=== PATIENT | male | born 1930 | race Caucasian/White ===

== ENCOUNTER 2018-11-17 09:40 | Observation (INO) ==
[2018-11-17] MEDS ORDERED: ceFAZolin 1 GM VIAL IV SCH (10:00)
[2018-11-17 11:36] LABS: Blood Urea Nitrogen 13 mg/dl (8-23)
[2018-11-17] MEDS ORDERED: TRANEXAMIC ACID 1,000 MG/10 ML VIAL IV ONE (12:25)
[2018-11-17] MEDS ORDERED: ONDANSETRON 4 MG/2 ML VIAL IV ONE (12:25)
[2018-11-17] MEDS ORDERED: PROPOFOL 200 MG/20 ML VIAL IV ONE (12:25)
[2018-11-17] MEDS ORDERED: MIDAZOLAM 5 MG/5 ML VIAL IV ONE (12:25)
[2018-11-17] MEDS ORDERED: LIDOCAINE HCL/PF 100 MG/5 ML SYRINGE IV ONE (12:25)
[2018-11-17] MEDS ORDERED: fentaNYL 250 MCG/5 ML VIAL IV ONE (12:25)
[2018-11-17] MEDS ORDERED: FLUMAZENIL 0.1 MG/ML ML IV PRN (12:38)
[2018-11-17] MEDS ORDERED: diphenhydrAMINE 50 MG/ML VIAL IV PRN (12:38)
[2018-11-17] MEDS ORDERED: PROMETHAZINE 25 MG/ML VIAL IV PRN (12:38)
[2018-11-17] MEDS ORDERED: IPRATROPIUM/ALBUTEROL 3 ML AMPUL.NEB NEB PRN (12:38)
[2018-11-17] MEDS ORDERED: BENZOCAINE/MENTHOL 1 LOZENGE PO PRN (12:38)
[2018-11-17] MEDS ORDERED: NALOXONE HCL 0.4 MG/ML VIAL IV PRN (12:38)
[2018-11-17] MEDS ORDERED: ACETAMINOPHEN 1,000 MG/100 ML BOTTLE IV ONE (12:38)
[2018-11-17] MEDS ORDERED: ONDANSETRON 4 MG/2 ML VIAL IV PRN ×2 (12:38→14:02)
[2018-11-17] MEDS ORDERED: LACTATED RINGERS 250 ML IV PRN (12:38)
[2018-11-17] MEDS ORDERED: LACTATED RINGERS 1,000 ML IV SCH (12:45)
[2018-11-17 13:06] LABS: Basophils # (Auto) 0 K/mcL (0.0-0.3); Basophils % (Auto) 0.4 % (0.0-2.0); Eosinophils # (Auto) 0.1 K/mcL (0.0-0.7); Eosinophils % (Auto) 1.1 % (0.0-7.0); Granulocytes % (Auto) 79.5 % (38.0-78.0); Lymphocytes % (Auto) 11.1 % (15.5-49.0); Mean Cell Volume 88.8 fL (80.0-100.0); Mean Corpuscular HGB Conc 33.3 g/dL (31.0-36.0); Monocytes # (Auto) 0.7 K/mcL (0.1-0.9); Monocytes % (Auto) 7.9 % (1.0-12.0); Platelet Count 186 K/mcL (140-440); RBC 4.39 M/mcL (4.50-5.90); Red Cell Distribution Width 14.7 % (11.5-14.5)
[2018-11-17 13:26] LABS: ALT/SGPT 24 U/l (0-40); Albumin 3.9 gm/dL (3.2-5.2); Albumin/Globulin Ratio 1.2 (1.0-2.3); Alkaline Phosphatase 84 U/L (39-117); Blood Urea Nitrogen 12 mg/dl (8-23)
--- NOTE | 2018-11-17 13:53 | Brief Operative Note ---
Date of procedure: 11/17/18 Pre-op diagnosis: hematuria Post-op diagnosis: same Procedure: evacuation of clot, turp Grafts/Implants: No Anesthesia: GLMA Findings: see note Complications: none Surgeon: Eduard Cruz Specimens Removed/Pathology: other (prostate chips) Condition: stable Disposition: PACU
[2018-11-17] MEDS ORDERED: MAG HYDROX/AL HYDROX/SIMETH 30 ML ORAL.SUSP PO PRN (14:02)
[2018-11-17] MEDS ORDERED: HYDROCODONE/APAP 7.5/325MG TABLET PO PRN (14:10)
[2018-11-17] MEDS: fentaNYL 100 MCG/2 ML VIAL IV PRN ×4 (14:20→14:35)
--- NOTE | 2018-11-17 14:50 | Operative Note ---
DATE OF OPERATION: 11/17/2018 PREOPERATIVE DIAGNOSIS: Hematuria. POSTOPERATIVE DIAGNOSIS: Hematuria. PROCEDURE: Evacuation of clots and transurethral resection of the prostate. SURGEON: Edaurd Cruz MD INDICATION: The patient is an 88-year-old gentleman who was having blood in his urine. It appeared that this was from the prostate and continued to bleed. He did develop clot retention and presents now for treatment. PROCEDURE IN DETAIL: The patient was identified and consent was signed. He was given general anesthesia, placed in lithotomy position, and prepped and draped in a standard fashion. Cystourethroscopy showed enlarged prostate with bleeding; also multiple clots in the bladder. This was evacuated free with the FlowCo evacuator. There appeared to be bleeding from the prostate; using the loop, we were able to remove the excess tissue and coagulate it. I was pleased with the overall appearance. This opened up the channel, but he also had a good flow when the catheter was removed. A 3-way catheter was then placed in traction was held for 5 minutes. His urine was fairly clear. He was started on continuous irrigation, awoken and taken to the recovery room in stable condition. He tolerated the procedure well. AntoniZ:lala Job ID: [id number] Doc ID: [id number] Eduard Cruz MD
[2018-11-17] MEDS: DEXTROSE 5%-NS 1,000 ML IV SCH (15:20)
[2018-11-17] MEDS: HYDROmorphone 2 MG/ML VIAL IV PRN ×3 (16:15→19:25)
[2018-11-17] MEDS: oxyCODONE/APAP 5/325MG TABLET PO PRN (19:37)
[2018-11-17] MEDS: VITAMIN E (DL,TOCOPHERYL ACET) 400 UNIT CAPSULE PO SCH (21:11)
[2018-11-17] MEDS: CEPHALEXIN 250 MG CAPSULE PO SCH (21:11)
[2018-11-17] MEDS: CALCIUM W/VIT D3 500 MG TABLET PO SCH (21:11)
[2018-11-17] MEDS: 0.9 % SODIUM CHLORIDE 10 ML SYRINGE IV SCH (21:13)
[2018-11-18] MEDS: oxyCODONE/APAP 5/325MG TABLET PO PRN ×5 (00:10→16:56)
[2018-11-18 06:21] LABS: Mean Cell Volume 91.3 fL (80.0-100.0); Mean Corpuscular HGB Conc 32.7 g/dL (31.0-36.0); Platelet Count 184 K/mcL (140-440); RBC 3.98 M/mcL (4.50-5.90); Red Cell Distribution Width 14.1 % (11.5-14.5)
[2018-11-18 07:11] LABS: Blood Urea Nitrogen 15 mg/dl (8-23)
[2018-11-18] MEDS: CEPHALEXIN 250 MG CAPSULE PO SCH ×3 (07:17→21:15)
[2018-11-18] MEDS: 0.9 % SODIUM CHLORIDE 10 ML SYRINGE IV SCH ×3 (07:18→21:17)
--- NOTE | 2018-11-18 07:20 | General Surgery Progress Note ---
Subjective Patient reports: feels better Narrative: Note initiated : 11/18/18 at 7:19 am Service Date, if different from initiated Date: [] Patient: Suman Charles 88 y/o M admitted on for Transuretheral Resection of Alexis dder Tumor. Chief Complaint: [] pod #1 patient feels better. urine is blood tinged. will stop cbi observe today Objective Temp Pulse Resp BP Pulse Ox 97.8 F 80 16 120/62 93 11/18/18 03:00 11/18/18 03:00 11/18/18 03:00 11/18/18 03:00 11/18/18 03:00 - Additional Data Intake & Output - Last 24 hours: Intake & Output 11/16/18 11/17/18 11/18/18 11/19/18 05:59 05:59 05:59 05:59 Intake Total 16488 Output Total 32865 Balance 505 Weight 205 lb - Labs 11/18/18 03:57 11/18/18 03:57 Diabetes panel 11/17/18 11/17/18 11/18/18 Range/Units 10:49 12:19 03:57 Sodium 141 137 137 (133-145) mmol/L Potassium 4.2 4.0 4.8 (3.3-5.1) mmol/L Chloride 105 103 102 (96-108) mmol/L Carbon Dioxide 26 25 23 (22-30) mmol/L BUN 13 12 15 (8-23) mg/dl Creatinine 1.0 0.9 0.9 (0.7-1.2) mg/dl Glucose 115 H 119 H 139 H (70-105) mg/dL Calcium 9.7 9.5 9.7 (8.6-10.4) mg/dl AST 22 (0-37) U/l ALT 24 (0-40) U/l Alkaline Phosphatase 84 (39-117) U/L Total Protein 7.2 (5.9-8.4) gm/dL Albumin 3.9 (3.2-5.2) gm/dL Calcium panel 11/17/18 11/17/18 11/18/18 Range/Units 10:49 12:19 03:57 Calcium 9.7 9.5 9.7 (8.6-10.4) mg/dl Albumin 3.9 (3.2-5.2) gm/dL Pituitary panel 11/17/18 11/17/18 11/18/18 Range/Units 10:49 12:19 03:57 Sodium 141 137 137 (133-145) mmol/L Potassium 4.2 4.0 4.8 (3.3-5.1) mmol/L Chloride 105 103 102 (96-108) mmol/L Carbon Dioxide 26 25 23 (22-30) mmol/L BUN 13 12 15 (8-23) mg/dl Creatinine 1.0 0.9 0.9 (0.7-1.2) mg/dl Glucose 115 H 119 H 139 H (70-105) mg/dL Calcium 9.7 9.5 9.7 (8.6-10.4) mg/dl Adrenal panel 11/17/18 11/17/18 11/18/18 Range/Units 10:49 12:19 03:57 Sodium 141 137 137 (133-145) mmol/L Potassium 4.2 4.0 4.8 (3.3-5.1) mmol/L Chloride 105 103 102 (96-108) mmol/L Carbon Dioxide 26 25 23 (22-30) mmol/L BUN 13 12 15 (8-23) mg/dl Creatinine 1.0 0.9 0.9 (0.7-1.2) mg/dl Glucose 115 H 119 H 139 H (70-105) mg/dL Calcium 9.7 9.5 9.7 (8.6-10.4) mg/dl Total Bilirubin 1.1 H (0.0-1.0) mg/dL AST 22 (0-37) U/l ALT 24 (0-40) U/l Alkaline Phosphatase 84 (39-117) U/L Total Protein 7.2 (5.9-8.4) gm/dL Albumin 3.9 (3.2-5.2) gm/dL Assessment and Plan - Time Spent With Patient Total time spent is greater than 50% in coordination of care (as documented) at patient's floor/unit and/or counseling patient:
[2018-11-18] MEDS: FINASTERIDE 5 MG TABLET PO SCH (09:06)
[2018-11-18] MEDS: CALCIUM W/VIT D3 500 MG TABLET PO SCH ×2 (09:06→21:15)
[2018-11-18] MEDS: MAGNESIUM OXIDE 400 MG TABLET PO SCH (09:06)
[2018-11-18] MEDS: VITAMIN D3 5,000 UNIT CAPSULE PO SCH (09:06)
[2018-11-18] MEDS: DEXTROSE 5%-NS 1,000 ML IV SCH (10:23)
--- NOTE | 2018-11-18 13:13 | Surgical Pathology Report ---
HISTOLOGY SPECIMEN MICROSCOPIC DIAGNOSIS PROSTATE, TRANSURETHRAL RESECTION: -- PROSTATE TISSUE WITH THERMAL DISTORTION, PATCHY CHRONIC INFLAMMATION AND MILD GLANDULAR AND STROMAL HYPERPLASIA. -- NO MALIGNANCY IDENTIFIED. (ACP:dionna) CLINICAL HISTORY Hematuria; unable to pass catheter. GROSS DESCRIPTION Received in formalin labeled prostate tissue, are multiple pink-cartwright tissue fragments and clot-like material in aggregate 11 x 10.5 x 1 cm and 83 grams. The majority of the tissue appears to be blood clot. Competitive Athlete tissue submitted in six cassettes. (STS:adj) Electronically Signed by: Eber Osuna M.D.
[2018-11-18] MEDS: DIGOXIN 125 MCG TABLET PO SCH (13:58)
[2018-11-18] MEDS: VITAMIN E (DL,TOCOPHERYL ACET) 400 UNIT CAPSULE PO SCH (21:14)
[2018-11-19] MEDS: DEXTROSE 5%-NS 1,000 ML IV SCH (05:27)
[2018-11-19] MEDS: CEPHALEXIN 250 MG CAPSULE PO SCH ×2 (06:07→13:40)
[2018-11-19] MEDS: 0.9 % SODIUM CHLORIDE 10 ML SYRINGE IV SCH (06:07)
[2018-11-19] MEDS: oxyCODONE/APAP 5/325MG TABLET PO PRN (06:09)
[2018-11-19] MEDS ORDERED: POLYETHYLENE GLYCOL 3350 17 GM PACKET PO PRN (07:05)
[2018-11-19] MEDS: FINASTERIDE 5 MG TABLET PO SCH (08:17)
[2018-11-19] MEDS: MAGNESIUM OXIDE 400 MG TABLET PO SCH (08:17)
[2018-11-19] MEDS: CALCIUM W/VIT D3 500 MG TABLET PO SCH (08:17)
[2018-11-19] MEDS: VITAMIN D3 5,000 UNIT CAPSULE PO SCH (08:18)
--- NOTE | 2018-11-19 11:55 | General Surgery Progress Note ---
Subjective Patient reports: feels better, tolerating a regular diet, flatus Narrative: Note initiated : 11/19/18 at 11:53 am Service Date, if different from initiated Date: [] Patient: Suman Charles 88 y/o M admitted on 11/17/18 for Transuretheral Resection of Bladder Tumor. Chief Complaint: [] POD #2 patient doing well. Catheter remove. able to urinate. will d/c to home Objective Temp Pulse Resp BP Pulse Ox 97.8 F 76 14 120/61 89 L 11/19/18 07:05 11/19/18 07:05 11/19/18 07:05 11/19/18 07:28 11/19/18 07:05 - Additional Data Intake & Output - Last 24 hours: Intake & Output 11/17/18 11/18/18 11/19/18 11/20/18 05:59 05:59 05:59 05:59 Intake Total 48719 3206 Output Total 57904 3655 75 Balance 505 -449 -75 Weight 205 lb 203 lb 6.4 oz - Labs 11/18/18 03:57 11/18/18 03:57 Assessment and Plan - Time Spent With Patient Total time spent is greater than 50% in coordination of care (as documented) at patient's floor/unit and/or counseling patient:
--- NOTE | 2018-11-19 11:58 | Discharge Plan ---
Discharge Plan - Patient/Caregiver Discharge Instructions Activity: resume usual activities as tolerated Diet: Regular Diet Additional Instructions: stop aspirin for 1 week f/u in 1 week - Follow up Plan Disposition: Home, Self-Care Prognosis: Good Rehab Potential: Good Overall status at discharge: patient is back to baseline
--- NOTE | 2018-11-19 12:21 | Discharge Summary ---
DATE OF ADMISSION: 11/17/2018 DATE OF DISCHARGE: ADMITTING DIAGNOSIS: Hematuria. DISCHARGE DIAGNOSIS: Hematuria. PROCEDURE: Transurethral resection of the prostate and removal of blood clots. SURGEON: Eduard Cruz MD INDICATION: The patient is an 88-year-old gentleman who did have blood in his urine. We tried to handle this conservatively, but continued to bleed and in the office we could not irrigate his catheter. He was admitted to observation for a TURP. For the rest of history and physical, please see his dictation. BRIEF HOSPITAL COURSE: The patient did well after the surgery. He was on continuous irrigation and his urine did clear. We left a catheter in for 2 days and on postop day #2, his urine was clear. Continuous bladder irrigation had been stopped and we removed the catheter and he was able to urinate. It says there was very little blood. I would hold off the aspirin. He will continue his preop medications. We will follow up in a week and if there is a problem, he will give me a call. RZ:lala Job ID: [id number] Doc ID: [id number] Eduard Cruz MD
[2018-11-19] MEDS: DIGOXIN 125 MCG TABLET PO SCH (13:40)
== END 2018-11-19 13:45 | disposition home or self-care (01) ==
LOC: MEDSUR 09:40 → SUR 09:40 → EDSTATUS 12:00 → MEDSUR 15:00
PROVIDERS: ADMIT Internal Medicine

== ENCOUNTER 2020-07-07 00:34 | Inpatient (IN) ==
[2020-07-07] MEDS ORDERED: LIDOCAINE 2% URO-JET 5 ML JEL.PF.APP UR ONE (03:12)
[2020-07-07] MEDS ORDERED: OPIUM/BELLADONNA ALKALOIDS 60 MG SUPP.RECT PR ONE (03:12)
[2020-07-07] MEDS ORDERED: LIDOCAINE JEL 2% 1 TUBE 5ML TOPICAL ONE ×2 (03:16→04:08)
[2020-07-07] MEDS ORDERED: cefTRIAXone 1 GM VIAL IV ONE (03:25)
[2020-07-07] MEDS ORDERED: ONDANSETRON 4 MG/2 ML VIAL IV PRN ×2 (03:35→12:40)
--- NOTE | 2020-07-07 03:38 | Emergency Department Note ---
Male Urogenital HPI General Chief complaint: Urogenital-Male Stated complaint: urinary retention Time Seen by Provider: 07/07/20 03:35 Source: patient and RN notes reviewed Mode of arrival: ambulatory Limitations: no limitations History of Present Illness HPI Narrative: Narrative: This is a patient of Dr. Mueller who has had bleeding from his bladder recently. She placed a catheter this morning but now the catheter is plugged and the nurses having trouble irrigating and unplugging it. The nurse contacted Dr. Philomena joyce and she will come in to see the patient. The patient complains to me of bladder distention and discomfort and has 650 cc of urine in his bladder. Onset (ago): day(s) Related Data Home Medications Medication Instructions Recorded Confirmed digoxin 250 mcg PO DAILY 06/06/15 07/07/20 vitamin E (dl, acetate) 800 unit PO HS 06/06/15 07/07/20 calcium carbonate-vitamin D3 2 tab PO BID 07/09/17 07/07/20 cholecalciferol (vitamin D3) 125 5,000 unit PO QDAY 12/03/17 07/07/20 mcg (5,000 unit) capsule aspirin 325 mg PO DAILY 07/07/20 07/07/20 nitroglycerin 0.4 mg SUBLINGUAL PRN PRN 07/07/20 07/07/20 Previous Rx's Medication Instructions Recorded calcium carbonate-vitamin D3 1,000 mg PO BID tab 11/19/18 phenazopyridine 200 mg tablet 200 mg PO TID #30 tab 11/21/18 finasteride 5 mg tablet 5 mg PO QDAY #20 tab 09/09/19 Allergies Allergy/AdvReac Type Severity Reaction Status Date / Time dexamethasone [DEXAMETHASONE] AdvReac Intermediate SHAKING,VOM Verified 07/07/20 06:58 ITING,ITCHI NG codeine [CODEINE] AdvReac Mild DISORIENTED Verified 07/06/20 13:07 orange AdvReac Mild Vomiting Verified 07/06/20 13:07 prednisone AdvReac Mild Confusion Verified 07/06/20 13:07 perfume Allergy Severe Anaphylaxis Uncoded 07/06/20 13:07 Review of Systems ROS ROS Narrative: Narrative: All systems ED: reviewed and negative except as stated. PFSH Narrative Patient History Narrative: Narrative: Medical/Surgical/Family History All Active Problems (Updated 07/07/20 @ 07:01 by Phillip Moreno MD) Bleeding (Acute) Bleeding from varicose vein (Acute) Dysuria (Acute) Hematuria (Acute) History of bladder cancer (Acute) Bleeding from urethra in male (Acute) Benign paroxysmal positional vertigo (Acute) Hemorrhage of prostate (Acute) Hx of transurethral destruction of bladder lesion (Acute) History of tonsillectomy and adenoidectomy (Acute) H/O shoulder surgery (Acute) Pacemaker (Acute) H/O knee surgery (Acute) H/O hemorrhoidectomy (Acute) H/O cardiac catheterization (Acute) H/O cystoscopy (Acute) History of carpal tunnel release (Acute) Tuberculosis exposure (Acute) Tachycardia (Acute) Obstructive sleep apnea (Acute) Mumps (Acute) Microscopic hematuria (Acute) Measles (Acute) Malaria (Acute) Hydroureter (Acute) Hydronephrosis (Acute) Heart disease (Acute) Enlarged prostate (Acute) Bronchitis (Acute) Bradycardia (Acute) BPH (benign prostatic hyperplasia) (Acute) Bladder malignancy (Acute) Bladder outlet obstruction (Acute) Lesion of bladder (Acute) Back pain (Acute) Atrial fibrillation (Acute) Atherosclerosis (Acute) Arthritis (Acute) Allergic rhinitis (Acute) Acute retention of urine (Acute) Medical History (Updated 07/07/20 @ 07:01 by Phillip Moreno MD) Acute retention of urine (Acute) Allergic rhinitis (Acute) Arthritis (Acute) Atherosclerosis (Acute) Atrial fibrillation (Acute) Back pain (Acute) Bladder malignancy (Acute) Bladder outlet obstruction (Acute) Bleeding (Acute) BPH (benign prostatic hyperplasia) (Acute) Bradycardia (Acute) Bronchitis (Acute) Enlarged prostate (Acute) Heart disease (Acute) Hydronephrosis (Acute) Hydroureter (Acute) Lesion of bladder (Acute) Malaria (Acute) Measles (Acute) Microscopic hematuria (Acute) Mumps (Acute) Obstructive sleep apnea (Acute) Pacemaker (Acute) Tachycardia (Acute) Tuberculosis exposure (Acute) Surgical History H/O cardiac catheterization (Acute) H/O cystoscopy (Acute) H/O hemorrhoidectomy (Acute) H/O knee surgery (Acute) H/O shoulder surgery (Acute) History of carpal tunnel release (Acute) History of tonsillectomy and adenoidectomy (Acute) Hx of transurethral destruction of bladder lesion (Acute) Family History Father Cardiac disease Mother Disorder of thyroid Social History Smoking Status: Never smoker Alcohol Intake Frequency: holiday/special occasion only Exam Narrative Narrative: Narrative: General Limitations: no limitations Head Head: Present atraumatic, normocephalic and normal inspection Eye Eye: Present normal appearance and EOMI; Absent scleral icterus and conjunctival injection Adbominal Abdominal: Present soft, distention and tenderness; Absent guarding, rebound and rigidity Expanded Abdominal Abdominal Tenderness: Present suprapubic and mild Neurological Neurological: Present alert Psychiatric Psychiatric: Present normal affect Skin Skin: Present warm (WNL) and dry; Absent diaphoresis Course Vital Signs Vital signs: Vital Signs Temperature 100.2 F H 07/07/20 00:35 Pulse Rate 81 07/07/20 00:35 Respiratory Rate 17 07/07/20 00:35 Blood Pressure 138/73 07/07/20 00:35 Pulse Oximetry (%) 97 07/07/20 00:35 Temperature 98.2 F 07/07/20 04:17 Pulse Rate 75 07/07/20 04:17 Respiratory Rate 20 07/07/20 04:17 Blood Pressure 131/78 07/07/20 04:17 Pulse Oximetry (%) 92 07/07/20 04:17 MDM MDM Narrative Medical decision making narrative: Narrative: Dr. Mueller felt that she needed to place a three-way cath that her in order to maintain continuous bladder irrigation. She would like the patient admitted in the hospital and I discussed this with the hospitalist as needed she. I did write admit orders for the hospitalist. Lab Data Result diagrams: 07/07/20 04:40 07/07/20 04:40 Discharge Plan Patient/Caregiver Discharge Instructions Pt seen by DAM WORKER/PA only: No Clinical Impression: Hemorrhage of prostate Patient Disposition: Xfer As Outpt/Obs ([facility]) Discharge Date/Time: 07/07/20 04:20
[2020-07-07] MEDS: LACTATED RINGERS 1,000 ML IV SCH ×2 (04:20→12:48)
[2020-07-07 06:03] LABS: Basophils # (Auto) 0.05 K/mcL (0.00-0.30); Basophils % (Auto) 0.6 % (0.0-2.0); Eosinophils # (Auto) 0.16 K/mcL (0.00-0.70); Eosinophils % (Auto) 1.8 % (0.0-7.0); Granulocytes % (Auto) 70.5 % (38.0-78.0); Hematocrit 42.2 % (40.1-51.0); Hemoglobin 13.5 g/dL (13.7-17.5); Lymphocytes # (Auto) 1.35 K/mcL (1.50-4.80); Lymphocytes % (Auto) 15.5 % (15.5-49.0); Mean Cell Volume 91.9 fL (80.0-100.0); Mean Platelet Volume 10.8 fL (7.4-10.4); Monocytes # (Auto) 1.01 K/mcL (0.10-0.90); Monocytes % (Auto) 11.6 % (1.0-12.0); Platelet Count 172 K/mcL (140-440); RBC 4.59 M/mcL (4.63-6.08); Red Cell Distribution Width 14.6 % (11.5-14.5); WBC 8.7 K/mcL (4.50-11.00)
[2020-07-07 06:16] LABS: INR 1.2 (0.9-1.1); Prothrombin Time 15.5 sec (11.9-14.5)
[2020-07-07 06:21] LABS: ALT/SGPT 24 U/l (0-40); AST/SGOT 23 U/l (0-37); Albumin 3.9 gm/dL (3.2-5.2); Albumin/Globulin Ratio 1.3 (1.0-2.3); Alkaline Phosphatase 98 U/L (39-117); Bilirubin,Direct 0.3 mg/dL (0.0-0.3); Bilirubin,Total 0.9 mg/dL (0.0-1.0); Blood Urea Nitrogen 17 mg/dl (8-23); Carbon Dioxide 23 mmol/L (22-30); Chloride 103 mmol/L (96-108); Glomerular Filtration Rate 60; Glucose 106 mg/dL (70-105); Lactate Dehydrogenase 166 U/L (94-250); Phosphorous 3.3 mg/dL (2.7-4.5); Triglycerides 105 mg/dl (<150); Uric Acid 5.7 mg/dL (2.5-8.0)
--- NOTE | 2020-07-07 07:49 | Internal Medicine Consult Note ---
HPI Data of Consult Primary Care Provider: Juan Manuel Rivas Consult Narrative Patient Information: Note initiated : 07/07/20 at 7:44 am Service Date, if different from initiated Date: [] Patient: Suman Charles 89 y/o M admitted on 07/07/20 for Urinary Retention. Consult done 07/07/2020 in the emergency room. Patient with gross hematuria with h/o retention. underwent both PVP and then urgent TURP for bleeding post procedure with Dr. Cruz. Then possible thrid procedure for bleeding with another urologist. he has had itnermittent gross hematuria since then (about 1 year). hematuria worsened recently and passing larger clots so was seen in clinic yesterday. Cystoscopy revealed VERY enlarged prostate with large median lobe. Hand irrigation through 20 zimbabwean coudee was able to get him clear and no further bleeding. such was left in place. Once home hematuria returned and catheter clogged and came to ER. Catheter removed as unable to be irrigated and able to void small amounts. Currently in pain and feels bladder is distended. Urine is thick dark red. he takes 325 mg asa. No fevers, no chills, no nausea no emesis. cc:: CC: Maria Eugenia Altamirano Constitutional Constitutional: Absent chills, fever(s) and malaise EENT Eyes: Absent change in vision, dry eye and irritation Cardiovascular Cardiovascular: Absent chest pain, chest pain at rest and chest pain with activity Respiratory Respiratory: Present dyspnea on exertion and wheezing; Absent cough Gastrointestinal Gastrointestinal: Present abdominal pain; Absent constipation, nausea and vomiting Genitourinary Genitourinary: as per HPI Musculoskeletal Musculoskeletal: Present myalgias; Absent abnormal gait and back pain Integumentary Integumentary: Absent rash, sores and unusual bruising Neurological Neurological: Absent confusion, dizziness and focal weakness Psychiatric Psychiatric: Present anxiety; Absent change in appetite and depression Endocrine Endocrine: Absent polyphagia and polyuria Hematologic/Lymphatic Hematologic/Lymphatic: Present easy bleeding; Absent easy bruising and lymphadenopathy Allergic/Immunologic Allergic/Immunologic: Absent itchy eyes, uticaria and wheezing PFSH PFSH All Active Problems (Updated 07/07/20 @ 08:50 by Omari Mueller MD) Bleeding (Acute) Bleeding from varicose vein (Acute) Dysuria (Acute) Hematuria (Acute) History of bladder cancer (Acute) Bleeding from urethra in male (Acute) Benign paroxysmal positional vertigo (Acute) Hemorrhage of prostate (Acute) Hx of transurethral destruction of bladder lesion (Acute) History of tonsillectomy and adenoidectomy (Acute) H/O shoulder surgery (Acute) Pacemaker (Acute) H/O knee surgery (Acute) H/O hemorrhoidectomy (Acute) H/O cardiac catheterization (Acute) H/O cystoscopy (Acute) History of carpal tunnel release (Acute) Tuberculosis exposure (Acute) Tachycardia (Acute) Obstructive sleep apnea (Acute) Mumps (Acute) Microscopic hematuria (Acute) Measles (Acute) Malaria (Acute) Hydroureter (Acute) Hydronephrosis (Acute) Heart disease (Acute) Enlarged prostate (Acute) Bronchitis (Acute) Bradycardia (Acute) BPH (benign prostatic hyperplasia) (Acute) Bladder malignancy (Acute) Bladder outlet obstruction (Acute) Lesion of bladder (Acute) Back pain (Acute) Atrial fibrillation (Acute) Atherosclerosis (Acute) Arthritis (Acute) Allergic rhinitis (Acute) Acute retention of urine (Acute) Medical History Acute retention of urine (Acute) Allergic rhinitis (Acute) Arthritis (Acute) Atherosclerosis (Acute) Atrial fibrillation (Acute) Back pain (Acute) Bladder malignancy (Acute) Bladder outlet obstruction (Acute) Bleeding (Acute) BPH (benign prostatic hyperplasia) (Acute) Bradycardia (Acute) Bronchitis (Acute) Enlarged prostate (Acute) Heart disease (Acute) Hydronephrosis (Acute) Hydroureter (Acute) Lesion of bladder (Acute) Malaria (Acute) Measles (Acute) Microscopic hematuria (Acute) Mumps (Acute) Obstructive sleep apnea (Acute) Pacemaker (Acute) Tachycardia (Acute) Tuberculosis exposure (Acute) Surgical History H/O cardiac catheterization (Acute) H/O cystoscopy (Acute) H/O hemorrhoidectomy (Acute) H/O knee surgery (Acute) H/O shoulder surgery (Acute) History of carpal tunnel release (Acute) History of tonsillectomy and adenoidectomy (Acute) Hx of transurethral destruction of bladder lesion (Acute) Family History Father Cardiac disease Mother Disorder of thyroid Social History smoking status: Former smoker alcohol intake frequency: holiday/special occasion only MEDS/ALLERGIES Home Medications and Allergies Home Medications Medication Instructions Recorded Confirmed Type digoxin 250 mcg PO DAILY 06/06/15 07/07/20 History vitamin E (dl, acetate) 800 unit PO HS 06/06/15 07/07/20 History calcium carbonate-vitamin D3 2 tab PO BID 07/09/17 07/07/20 History cholecalciferol (vitamin D3) 125 5,000 unit PO QDAY 12/03/17 07/07/20 History mcg (5,000 unit) capsule calcium carbonate-vitamin D3 1,000 mg PO BID tab 11/19/18 07/07/20 Rx phenazopyridine 200 mg tablet 200 mg PO TID #30 tab 11/21/18 07/07/20 Rx finasteride 5 mg tablet 5 mg PO QDAY #20 tab 09/09/19 07/07/20 Rx aspirin 325 mg PO DAILY 07/07/20 07/07/20 History nitroglycerin 0.4 mg SUBLINGUAL PRN PRN 07/07/20 07/07/20 History Allergies Allergy/AdvReac Type Severity Reaction Status Date / Time dexamethasone [DEXAMETHASONE] AdvReac Intermediate SHAKING,VOM Verified 07/07/20 06:58 ITING,ITCHI NG codeine [CODEINE] AdvReac Mild DISORIENTED Verified 07/06/20 13:07 orange AdvReac Mild Vomiting Verified 07/06/20 13:07 prednisone AdvReac Mild Confusion Verified 07/06/20 13:07 perfume Allergy Severe Anaphylaxis Uncoded 07/06/20 13:07 EXAM Constitutional Vitals: Temp Pulse Resp BP Pulse Ox 98.2 F 75 20 131/78 92 07/07/20 04:17 07/07/20 04:17 07/07/20 04:17 07/07/20 04:17 07/07/20 04:17 Head Head exam: Present atraumatic, normal inspection and normocephalic Eye Eye exam: Present normal appearance; Absent conjunctival injection and scleral icterus Respiratory Respiratory exam: Absent normal respiratory exam, respiratory distress and wheezes Cardiovascular Cardiovascular exam: Present normal rate and rhythm; Absent bradycardia GI/Abdominal GI/Abdominal exam: Present soft and distended (bladder palpable); Absent guarding, mass and rebound Rectal Rectal exam: Present normal prostate (only able to appricate apex, markedly enlarged, no induration appriciate ) exam: Present circumcision and urethral discharge (blood at meatus ); Absent normal inspection, scrotal swelling and testicular tenderness External exam: Absent ecchymosis, erythema, lacerations, lesions and swelling Neurological Exam Neurological exam: Present alert and oriented X3 Psychiatric Psychiatric exam: Present normal affect; Absent agitated, anxious and depressed Skin Skin exam: Absent abrasion, diaphoretic and pallor DATA Data Completed and Pending Labs: Labs from last 24 hours 07/07/20 07/07/20 07/07/20 04:40 04:40 04:40 WBC 8.7 RBC 4.59 L Hgb 13.5 L Hct 42.2 MCV 91.9 MCH 29.4 MCHC 32.0 RDW 14.6 H Plt Count 172 MPV 10.8 H Gran % 70.5 Lymph % (Auto) 15.5 [place] % (Auto) 11.6 Eos % (Auto) 1.8 Baso % (Auto) 0.6 Gran # 6.16 Lymph # (Auto) 1.35 L [place] # (Auto) 1.01 H Eos # (Auto) 0.16 Baso # (Auto) 0.05 PT 15.5 H INR 1.2 H Sodium 136 Potassium 4.1 Chloride 103 Carbon Dioxide 23 Anion Gap 10.0 BUN 17 Creatinine 1.1 GFR Calculation 60 Glucose 106 H Uric Acid 5.7 Calcium 10.0 Phosphorus 3.3 Magnesium 2.3 Total Bilirubin 0.9 Direct Bilirubin 0.3 GGT 83 H AST 23 ALT 24 Alkaline Phosphatase 98 Lactate Dehydrogenase 166 Total Protein 6.9 Albumin 3.9 Globulin 3.0 Albumin/Globulin Ratio 1.3 Triglycerides 105 A/P Assessment and plan (1) Hematuria: Status: Acute Comment: -patient has a massive prostate on CT scan with a protruding median lobe -he is bleeding from his prostate and failed conservative management with [address] -3 way catheter placed and hand irrigation performed and then patient started on CBI -admit to hospitalist for continued CBI until no further bleeding -will likely need eventual TURP -flomax BID and avodart to be started (he had hair loss with finasteride and would like to try the other agent but understands may have the same side effect) -keep CBI titrated to light pink to clear -call Urology an issues with the CBI Qualifiers: Hematuria type: gross Qualified Code(s): R31.0 - Gross hematuria Time Spent With Patient Time: Total time spent is greater than 50% in coordination of care (as documented) at patient's floor/unit and/or counseling patient: PROC Catheter Insertion (Urinary) Date of Procedure: 07/07/20 Bladder Scan/Ultrasound used before catheterization: Yes Estimated amount of urin (mLs): 600 Preparation: Povidone-Iodine Type of catheter inserted: 3 way Catheter Arabic Size: 24 Catheter Balloon Size (mLs): Other (20) Topical anesthesia used: Yes Results: successfully catheterized-immediate flow Patient tolerated procedure: well Complications: bloody urine Additional comments: HAND IRRIGATION BLADDER: through the catheter, extensive hand irrigation was performed and 500 cc clot was removed. Urine was then light pink on continuous bladder irrigation through the 3 way catheter.
--- NOTE | 2020-07-07 12:21 | Internal Med History&Physical ---
HPI History of Present Illness Patient information: Note initiated : 07/07/20 at 12:13 pm Service Date, if different from initiated Date: [] Patient: Suman Charles a 89 y/o M admitted on 07/07/20 for Urinary Retention. Chief Complaint: [] History of present illness: Mr. Charles is a 89 year old M with a history of hematuria, atrial fibrillation, CAD, bladder cancer, and BPH who was sent to the ER by urologist Dr. Mueller after cystoscopy. Patient has been having hematuria for about 1 year which has been worsening recently. he also had acute urinary retention yesterday. He underwent both PVP and then urgent TURP for bleeding by urologist Dr. Cruz. Yesterday patient went to see Dr. Mueller who found him to have urinary retention and pass larger clots when urinating. Cystoscopy was performed yesterday by Dr. Mueller, showing a very enlarged prostate with a large median lobe. I was called to see and admit this patient after the cystoscopy because of gross hematuria and need of CBI. Review of Systems All systems: reviewed and no additional remarkable complaints except as stated PFSH PFSH All Active Problems Bleeding (Acute) Bleeding from varicose vein (Acute) Dysuria (Acute) Hematuria (Acute) History of bladder cancer (Acute) Bleeding from urethra in male (Acute) Benign paroxysmal positional vertigo (Acute) Hemorrhage of prostate (Acute) Hx of transurethral destruction of bladder lesion (Acute) History of tonsillectomy and adenoidectomy (Acute) H/O shoulder surgery (Acute) Pacemaker (Acute) H/O knee surgery (Acute) H/O hemorrhoidectomy (Acute) H/O cardiac catheterization (Acute) H/O cystoscopy (Acute) History of carpal tunnel release (Acute) Tuberculosis exposure (Acute) Tachycardia (Acute) Obstructive sleep apnea (Acute) Mumps (Acute) Microscopic hematuria (Acute) Measles (Acute) Malaria (Acute) Hydroureter (Acute) Hydronephrosis (Acute) Heart disease (Acute) Enlarged prostate (Acute) Bronchitis (Acute) Bradycardia (Acute) BPH (benign prostatic hyperplasia) (Acute) Bladder malignancy (Acute) Bladder outlet obstruction (Acute) Lesion of bladder (Acute) Back pain (Acute) Atrial fibrillation (Acute) Atherosclerosis (Acute) Arthritis (Acute) Allergic rhinitis (Acute) Acute retention of urine (Acute) Medical History Acute retention of urine (Acute) Allergic rhinitis (Acute) Arthritis (Acute) Atherosclerosis (Acute) Atrial fibrillation (Acute) Back pain (Acute) Bladder malignancy (Acute) Bladder outlet obstruction (Acute) Bleeding (Acute) BPH (benign prostatic hyperplasia) (Acute) Bradycardia (Acute) Bronchitis (Acute) Enlarged prostate (Acute) Heart disease (Acute) Hydronephrosis (Acute) Hydroureter (Acute) Lesion of bladder (Acute) Malaria (Acute) Measles (Acute) Microscopic hematuria (Acute) Mumps (Acute) Obstructive sleep apnea (Acute) Pacemaker (Acute) Tachycardia (Acute) Tuberculosis exposure (Acute) Surgical History H/O cardiac catheterization (Acute) H/O cystoscopy (Acute) H/O hemorrhoidectomy (Acute) H/O knee surgery (Acute) H/O shoulder surgery (Acute) History of carpal tunnel release (Acute) History of tonsillectomy and adenoidectomy (Acute) Hx of transurethral destruction of bladder lesion (Acute) Family History Father Cardiac disease Mother Disorder of thyroid Social History smoking status: Former smoker alcohol intake frequency: holiday/special occasion only MEDS/ALLERGIES Home Medications and Allergies Home Medications Medication Instructions Recorded Confirmed Type digoxin 250 mcg PO DAILY 06/06/15 07/07/20 History vitamin E (dl, acetate) 800 unit PO HS 06/06/15 07/07/20 History calcium carbonate-vitamin D3 2 tab PO BID 07/09/17 07/07/20 History cholecalciferol (vitamin D3) 125 5,000 unit PO QDAY 12/03/17 07/07/20 History mcg (5,000 unit) capsule calcium carbonate-vitamin D3 1,000 mg PO BID tab 11/19/18 07/07/20 Rx phenazopyridine 200 mg tablet 200 mg PO TID #30 tab 11/21/18 07/07/20 Rx finasteride 5 mg tablet 5 mg PO QDAY #20 tab 09/09/19 07/07/20 Rx aspirin 325 mg PO DAILY 07/07/20 07/07/20 History nitroglycerin 0.4 mg SUBLINGUAL PRN PRN 07/07/20 07/07/20 History Allergies Allergy/AdvReac Type Severity Reaction Status Date / Time dexamethasone [DEXAMETHASONE] AdvReac Intermediate SHAKING,VOM Verified 07/07/20 06:58 ITING,ITCHI NG codeine [CODEINE] AdvReac Mild DISORIENTED Verified 07/06/20 13:07 orange AdvReac Mild Vomiting Verified 07/06/20 13:07 prednisone AdvReac Mild Confusion Verified 07/06/20 13:07 perfume Allergy Severe Anaphylaxis Uncoded 07/06/20 13:07 EXAM Constitutional Vitals: Temp Pulse Resp BP Pulse Ox 98.4 F 75 18 109/65 92 07/07/20 07:58 07/07/20 07:58 07/07/20 07:58 07/07/20 07:58 07/07/20 07:58 Additional findings Additional findings: General - No acute distress Eyes - PERRLA, EOM intact ENT no rhinorrhea, no noticeable or palpable swelling, no redness or rash around throat or on face Neck supple, no JVD, no thyromegaly Respiratory: Lungs -clear, no wheezing or crackles. Cardiovascular - RRR no m/r/g, GI - Normal bowel sounds, no distended, soft. Extremeties - No edema, cyanosis or clubbing. venous stasis. Hemo/lymphatic/immune no lymphadenopathy Neurological Alert and oriented x 3, no focal neurological deficits. Psychiatry flat affect DATA Data Completed and Pending Labs: Labs from last 24 hours 07/07/20 07/07/20 07/07/20 04:40 04:40 04:40 WBC 8.7 RBC 4.59 L Hgb 13.5 L Hct 42.2 MCV 91.9 MCH 29.4 MCHC 32.0 RDW 14.6 H Plt Count 172 MPV 10.8 H Gran % 70.5 Lymph % (Auto) 15.5 [place] % (Auto) 11.6 Eos % (Auto) 1.8 Baso % (Auto) 0.6 Gran # 6.16 Lymph # (Auto) 1.35 L [place] # (Auto) 1.01 H Eos # (Auto) 0.16 Baso # (Auto) 0.05 PT 15.5 H INR 1.2 H Sodium 136 Potassium 4.1 Chloride 103 Carbon Dioxide 23 Anion Gap 10.0 BUN 17 Creatinine 1.1 GFR Calculation 60 Glucose 106 H Uric Acid 5.7 Calcium 10.0 Phosphorus 3.3 Magnesium 2.3 Total Bilirubin 0.9 Direct Bilirubin 0.3 GGT 83 H AST 23 ALT 24 Alkaline Phosphatase 98 Lactate Dehydrogenase 166 Total Protein 6.9 Albumin 3.9 Globulin 3.0 Albumin/Globulin Ratio 1.3 Triglycerides 105 A/P Narrative A/P Narrative: 1. Hematuria, gross 2. Hemorrhage of prostate 3. Acute urinary retention 4. Hx of bladder cancer 5. BPH Managed by urology team 3 way catheter placed keep CBI titrated to light pink to clear 6. Anemia from acute blood loss H/H Q12hrs 7. Atrial fibrillation Rate is controlled No anticoagulation at this moment. Patient understood the risks and benefits of anticoagulation. 8. CAD, s/p pacemaker placement Continue home medication 9. DVT prophylaxis: SCD 10. CODE STATUS:DNR/DNI Time Spent With Patient Time: Total time spent is greater than 50% in coordination of care (as documented) at patient's floor/unit and/or counseling patient: QUALITY Stroke Symptom Onset Unknown: No VTE Deep Vein Thrombosis/Pulmonary Embolism Present on Admission: No
[2020-07-07] MEDS: 0.9 % SODIUM CHLORIDE 10 ML SYRINGE IV SCH ×2 (12:49→20:38)
[2020-07-07] MEDS: DIGOXIN 125 MCG TABLET PO SCH (13:12)
[2020-07-07] MEDS ORDERED: PHENAZOPYRIDINE 200 MG TABLET PO SCH (15:00)
--- NOTE | 2020-07-07 15:16 | Internal Med Progress Note ---
SUBJECTIVE Subjective Patient information: Note initiated : 07/07/20 at 3:12 pm Service Date, if different from initiated Date: [] Patient: Suman Charles 89 y/o M admitted on 07/07/20 for Urinary Retention. Has done well since this am in the ER with CBI. urine much more clear and no further bright red blood per urethral meatus. Pain improved. When he moves or if the CBI is turned down, urine turns koolaid colored again. Constitutional Vitals: Vital Signs Temp Pulse Resp BP Pulse Ox 98.4 F 75 18 109/65 92 07/07/20 07:58 07/07/20 07:58 07/07/20 07:58 07/07/20 07:58 07/07/20 07:58 Period Temp Pulse Resp BP Sys/Rush Pulse Ox Last 24 Hr 98.2 F-100.2 F 74-81 -20 109-164/60-78 92-97 Intake and Output 07/07/20 07/07/20 07/07/20 05:59 13:59 21:59 Intake Total 9000 60369 3000 Output Total 51980 38121 3300 Balance -5300 -8300 -300 Weight 208 lb 11.2 oz Intake & Output: Intake & Output 07/07/20 07/07/20 07/07/20 05:59 13:59 21:59 Intake Total 9000 85110 3000 Output Total 61234 82786 3300 Balance -5300 -8300 -300 Weight 208 lb 11.2 oz Intake: CBI Fluid 9000 66329 3000 Output: Urine Catheter Amount 5450 6700 3-way Urethral 5450 6700 CBI Fluid 8850 05480 3300 Other: Urine Appearance Hematuria Small Blood Clots Large Blood Clots 3-way Urethral Hematuria Hematuria Small Blood Clots Small Blood Clots Large Blood Clots Large Blood Clots Urine Color Dark Red 3-way Urethral Plover Bright Red Blood Tinged Urine Odor Normal 3-way Urethral Normal Normal Net CBI 200 200 300 General appearance: cooperative and no acute distress; no moderate distress, no mild distress and no severe distress GI/Abdominal GI/Abdominal exam: Present soft; Absent distended, firm, guarding, rebound and tenderness Additional comments: urine clear in tubing on moderate continuous bladder irrigation. catheter well positioned and secured. OBJ DATA Labs CBC & Chem 7: 07/07/20 04:40 07/07/20 04:40 Labs: Abnormal Lab Results 07/07/20 07/07/20 07/07/20 04:40 04:40 04:40 RBC 4.59 L Hgb 13.5 L RDW 14.6 H MPV 10.8 H Lymph # (Auto) 1.35 L [place] # (Auto) 1.01 H PT 15.5 H INR 1.2 H Glucose 106 H GGT 83 H Meds: Medications Calcium/Vitamin D (Calcium W/Vit D3) 1,000 mg PO BID [facility] Digoxin (Lanoxin) 250 mcg PO DAILY@1400 [facility] Last Admin: 07/07/20 13:12 Dose: 250 mcg Documented by: Docusate Sodium (Colace) 100 mg PO BID [facility] Hydromorphone HCl (Dilaudid) 0.5 mg IV Q2HP PRN; Protocol PRN Reason: Per Pain Protocol Lactated Ringer's (Lactated Ringers) 1,000 mls @ 100 mls/hr IV .Q10H [facility] Last Admin: 07/07/20 12:48 Dose: Not Given Documented by: Ondansetron HCl (Zofran) 4 mg IV Q6HP PRN PRN Reason: Nausea And Vomiting Sodium Chloride (Saline Flush) 10 ml IV Q8 [facility] Last Admin: 07/07/20 12:49 Dose: Not Given Documented by: Tamsulosin HCl (Flomax) 0.4 mg PO BID [facility] Vitamin D (Vitamin D3) 5,000 unit PO DAILY RAMIN A/P Assessment and plan (1) Hematuria: Status: Acute Qualifiers: Hematuria type: gross Qualified Code(s): R31.0 - Gross hematuria Narrative A/P Narrative: Gross Hematuria: -patient has a massive prostate on CT scan with a protruding median lobe -he is bleeding from his prostate and failed conservative management with [address] 2 [address] -3 way catheter placed and hand irrigation performed and then patient started on CBI -admit to hospitalist for continued CBI until no further bleeding -will likely need eventual TURP -flomax BID and avodart to be started (he had hair loss with finasteride and would like to try the other agent but understands may have the same side effect) -keep CBI titrated to light pink to clear and doing well on such and needs to continue CBI for another day -will plan to clamp the CBI in the am and reevaluate his bleeding at that time -call Urology an issues with the CBI Time Spent With Patient Time: Total time spent is greater than 50% in coordination of care (as documented) at patient's floor/unit and/or counseling patient: 15 minutes QUALITY Stroke Symptom Onset Unknown: No VTE Deep Vein Thrombosis/Pulmonary Embolism Present on Admission: No
[2020-07-07 16:34] LABS: Hematocrit 39.5 % (40.1-51.0); Hemoglobin 12.7 g/dL (13.7-17.5)
--- NOTE | 2020-07-07 17:42 | Internal Medicine Consult Note ---
HPI Data of Consult Consult date: 07/07/20 Primary Care Provider: Juan Manuel Rivas Consult Narrative Patient Information: Note initiated : 07/07/20 at 5:33 pm Service Date, if different from initiated Date: [] Patient: Suman Charles 89 y/o M admitted on 07/07/20 for Urinary Retention. Patient resides in [place] and has a urologist there. Known large prostate. on no medication other than OTC supplements. Increasing difficulty with urination and suprapubic pain. Finally unable to urinate and presented to the ER> ER tried several catheters but unable to pass them so urology was urgently called. patient is in distress, he has 8-10/10 pain in the suprapubic area. no fevers, no chills, no nausea, no emesis, no flank pain. cc:: CC: Maria Eugenia Altamirano Constitutional Constitutional: Absent chills, fever(s) and weakness EENT Eyes: Absent dry eye, itchy eyes and pain Cardiovascular Cardiovascular: Absent chest pain, chest pain at rest and chest pain with activity Respiratory Respiratory: Absent cough, dyspnea on exertion and wheezing Gastrointestinal Gastrointestinal: Present as per HPI Musculoskeletal Musculoskeletal: Absent muscle weakness, numbness and tingling Integumentary Integumentary: Absent pruritus, rash and sores Neurological Neurological: Absent numbness, tingling and weakness Hematologic/Lymphatic Hematologic/Lymphatic: Absent easy bleeding, easy bruising and lymphadenopathy Allergic/Immunologic Allergic/Immunologic: Absent itchy eyes, uticaria and wheezing PFSH PFSH All Active Problems Bleeding (Acute) Bleeding from varicose vein (Acute) Dysuria (Acute) Hematuria (Acute) History of bladder cancer (Acute) Bleeding from urethra in male (Acute) Benign paroxysmal positional vertigo (Acute) Hemorrhage of prostate (Acute) Hx of transurethral destruction of bladder lesion (Acute) History of tonsillectomy and adenoidectomy (Acute) H/O shoulder surgery (Acute) Pacemaker (Acute) H/O knee surgery (Acute) H/O hemorrhoidectomy (Acute) H/O cardiac catheterization (Acute) H/O cystoscopy (Acute) History of carpal tunnel release (Acute) Tuberculosis exposure (Acute) Tachycardia (Acute) Obstructive sleep apnea (Acute) Mumps (Acute) Microscopic hematuria (Acute) Measles (Acute) Malaria (Acute) Hydroureter (Acute) Hydronephrosis (Acute) Heart disease (Acute) Enlarged prostate (Acute) Bronchitis (Acute) Bradycardia (Acute) BPH (benign prostatic hyperplasia) (Acute) Bladder malignancy (Acute) Bladder outlet obstruction (Acute) Lesion of bladder (Acute) Back pain (Acute) Atrial fibrillation (Acute) Atherosclerosis (Acute) Arthritis (Acute) Allergic rhinitis (Acute) Acute retention of urine (Acute) Medical History Acute retention of urine (Acute) Allergic rhinitis (Acute) Arthritis (Acute) Atherosclerosis (Acute) Atrial fibrillation (Acute) Back pain (Acute) Bladder malignancy (Acute) Bladder outlet obstruction (Acute) Bleeding (Acute) BPH (benign prostatic hyperplasia) (Acute) Bradycardia (Acute) Bronchitis (Acute) Enlarged prostate (Acute) Heart disease (Acute) Hydronephrosis (Acute) Hydroureter (Acute) Lesion of bladder (Acute) Malaria (Acute) Measles (Acute) Microscopic hematuria (Acute) Mumps (Acute) Obstructive sleep apnea (Acute) Pacemaker (Acute) Tachycardia (Acute) Tuberculosis exposure (Acute) Surgical History H/O cardiac catheterization (Acute) H/O cystoscopy (Acute) H/O hemorrhoidectomy (Acute) H/O knee surgery (Acute) H/O shoulder surgery (Acute) History of carpal tunnel release (Acute) History of tonsillectomy and adenoidectomy (Acute) Hx of transurethral destruction of bladder lesion (Acute) Family History Father Cardiac disease Mother Disorder of thyroid Social History smoking status: Former smoker alcohol intake frequency: holiday/special occasion only MEDS/ALLERGIES Home Medications and Allergies Home Medications Medication Instructions Recorded Confirmed Type digoxin 250 mcg PO DAILY 06/06/15 07/07/20 History vitamin E (dl, acetate) 800 unit PO HS 06/06/15 07/07/20 History calcium carbonate-vitamin D3 2 tab PO BID 07/09/17 07/07/20 History cholecalciferol (vitamin D3) 125 5,000 unit PO QDAY 12/03/17 07/07/20 History mcg (5,000 unit) capsule calcium carbonate-vitamin D3 1,000 mg PO BID tab 11/19/18 07/07/20 Rx phenazopyridine 200 mg tablet 200 mg PO TID #30 tab 11/21/18 07/07/20 Rx finasteride 5 mg tablet 5 mg PO QDAY #20 tab 09/09/19 07/07/20 Rx aspirin 325 mg PO DAILY 07/07/20 07/07/20 History nitroglycerin 0.4 mg SUBLINGUAL PRN PRN 07/07/20 07/07/20 History Allergies Allergy/AdvReac Type Severity Reaction Status Date / Time dexamethasone [DEXAMETHASONE] AdvReac Intermediate SHAKING,VOM Verified 07/07/20 06:58 ITING,ITCHI NG codeine [CODEINE] AdvReac Mild DISORIENTED Verified 07/06/20 13:07 orange AdvReac Mild Vomiting Verified 07/06/20 13:07 prednisone AdvReac Mild Confusion Verified 07/06/20 13:07 perfume Allergy Severe Anaphylaxis Uncoded 07/06/20 13:07 EXAM Constitutional Vitals: Temp Pulse Resp BP Pulse Ox 98.5 F 75 18 122/67 93 07/07/20 16:13 07/07/20 16:13 07/07/20 16:13 07/07/20 16:13 07/07/20 16:13 General appearance: average body habitus, cooperative and moderate distress Head Head exam: Present atraumatic, normal inspection and normocephalic Eye Eye exam: Present EOMI; Absent conjunctival injection and scleral icterus Respiratory Respiratory exam: Absent accessory muscle use, stridor and wheezes Cardiovascular Cardiovascular exam: Present normal rate and rhythm; Absent bradycardia GI/Abdominal GI/Abdominal exam: Present distended and tenderness; Absent guarding and rebound Additional comments: bladder palpable exam: Present circumcision; Absent scrotal swelling and testicular tenderness Additional comments: blood at meatus Neurological Exam Neurological exam: Present alert and oriented X3 Psychiatric Psychiatric exam: Present anxious and normal affect; Absent agitated DATA Data Completed and Pending Labs: Labs from last 24 hours 07/07/20 07/07/20 07/07/20 15:41 04:40 04:40 WBC RBC Hgb 12.7 L Hct 39.5 L MCV MCH MCHC RDW Plt Count MPV Gran % Lymph % (Auto) Door % (Auto) Eos % (Auto) Baso % (Auto) Gran # Lymph # (Auto) [place] # (Auto) Eos # (Auto) Baso # (Auto) PT 15.5 H INR 1.2 H Sodium 136 Potassium 4.1 Chloride 103 Carbon Dioxide 23 Anion Gap 10.0 BUN 17 Creatinine 1.1 GFR Calculation 60 Glucose 106 H Uric Acid 5.7 Calcium 10.0 Phosphorus 3.3 Magnesium 2.3 Total Bilirubin 0.9 Direct Bilirubin 0.3 GGT 83 H AST 23 ALT 24 Alkaline Phosphatase 98 Lactate Dehydrogenase 166 Total Protein 6.9 Albumin 3.9 Globulin 3.0 Albumin/Globulin Ratio 1.3 Triglycerides 105 07/07/20 04:40 WBC 8.7 RBC 4.59 L Hgb 13.5 L Hct 42.2 MCV 91.9 MCH 29.4 MCHC 32.0 RDW 14.6 H Plt Count 172 MPV 10.8 H Gran % 70.5 Lymph % (Auto) 15.5 [place] % (Auto) 11.6 Eos % (Auto) 1.8 Baso % (Auto) 0.6 Gran # 6.16 Lymph # (Auto) 1.35 L [place] # (Auto) 1.01 H Eos # (Auto) 0.16 Baso # (Auto) 0.05 PT INR Sodium Potassium Chloride Carbon Dioxide Anion Gap BUN Creatinine GFR Calculation Glucose Uric Acid Calcium Phosphorus Magnesium Total Bilirubin Direct Bilirubin GGT AST ALT Alkaline Phosphatase Lactate Dehydrogenase Total Protein Albumin Globulin Albumin/Globulin Ratio Triglycerides A/P Time Spent With Patient Time: Total time spent is greater than 50% in coordination of care (as documented) at patient's floor/unit and/or counseling patient: PROC Catheter Insertion (Urinary) Date of Procedure: 07/07/20 Prophylactic antibiotics given: No Bladder Scan/Ultrasound used before catheterization: Yes Estimated amount of urin (mLs): 500 Preparation: Povidone-Iodine Type of catheter inserted: 2 way, coude tip and other (complicated catheter placement over a wire after cystoscopy ) Catheter [place] Size: 18 Catheter Balloon Size (mLs): 10 Topical anesthesia used: Yes Results: successfully catheterized-immediate flow and urine sent for UA/ C&S Patient tolerated procedure: well Complications: none Additional comments: Attempted to place 18 [place] coudee and wire but false passage suspected. Cystoscopy: patient was prepped and draped bedside in the usual fashion. The flexible cystoscope was introduced into the urethra and a false passage was seen just distal to the external sphincter. we were able to guide the scope past such and into the bladder. Wire was placed and scope was removed. Complicated catheter placement> The 18 [place] coudee was threaded over the wire in the usual selinger fashion and able to be passed into the bladder. Clear yellow urine returned. connected to stat lock and night bag. Tolerated well. ~ 1000 cc drainage.
[2020-07-07] MEDS ORDERED: FLEETS ADULT ENEMA PR ONE (19:30)
[2020-07-07] MEDS: FLEETS ADULT ENEMA PR PRN (19:40)
[2020-07-07] MEDS: DOCUSATE SODIUM 100 MG CAPSULE PO SCH (20:38)
[2020-07-07] MEDS: CALCIUM W/VIT D3 500 MG TABLET PO SCH (20:38)
[2020-07-07] MEDS: TAMSULOSIN 0.4 MG CAPSULE PO SCH (20:38)
[2020-07-07] MEDS ORDERED: CALCIUM CARBONATE VITAMIN D3 PO SCH (21:00)
[2020-07-08] MEDS: LACTATED RINGERS 1,000 ML IV SCH ×2 (02:05→07:50)
[2020-07-08] MEDS: 0.9 % SODIUM CHLORIDE 10 ML SYRINGE IV SCH ×3 (04:01→20:43)
[2020-07-08 06:39] LABS: Basophils # (Auto) 0.03 K/mcL (0.00-0.30); Basophils % (Auto) 0.4 % (0.0-2.0); Eosinophils # (Auto) 0.26 K/mcL (0.00-0.70); Eosinophils % (Auto) 3.4 % (0.0-7.0); Granulocytes % (Auto) 61.3 % (38.0-78.0); Hematocrit 40.2 % (40.1-51.0); Hemoglobin 12.7 g/dL (13.7-17.5); Lymphocytes # (Auto) 1.69 K/mcL (1.50-4.80); Lymphocytes % (Auto) 21.9 % (15.5-49.0); Mean Cell Volume 92.2 fL (80.0-100.0); Mean Corpuscular HGB Conc 31.6 g/dL (31.0-36.0); Mean Platelet Volume 10.9 fL (7.4-10.4); Platelet Count 149 K/mcL (140-440); RBC 4.36 M/mcL (4.63-6.08); Red Cell Distribution Width 14.6 % (11.5-14.5); WBC 7.7 K/mcL (4.50-11.00)
[2020-07-08] MEDS: CALCIUM W/VIT D3 500 MG TABLET PO SCH ×2 (07:37→20:42)
[2020-07-08] MEDS: DOCUSATE SODIUM 100 MG CAPSULE PO SCH ×2 (07:37→20:43)
[2020-07-08] MEDS: TAMSULOSIN 0.4 MG CAPSULE PO SCH ×2 (07:38→20:42)
[2020-07-08] MEDS: VITAMIN D3 5,000 UNIT CAPSULE PO SCH (07:38)
[2020-07-08 07:43] LABS: ALT/SGPT 21 U/l (0-40); AST/SGOT 19 U/l (0-37); Albumin 3.5 gm/dL (3.2-5.2); Albumin/Globulin Ratio 1.2 (1.0-2.3); Alkaline Phosphatase 94 U/L (39-117); Bilirubin,Total 1.6 mg/dL (0.0-1.0); Blood Urea Nitrogen 13 mg/dl (8-23); Calcium 9.9 mg/dl (8.6-10.4); Carbon Dioxide 24 mmol/L (22-30); Chloride 104 mmol/L (96-108); Glomerular Filtration Rate 67; Glucose 117 mg/dL (70-105)
--- NOTE | 2020-07-08 13:08 | Internal Med Progress Note ---
SUBJECTIVE Subjective Patient information: Note initiated : 07/08/20 at 12:59 pm Service Date, if different from initiated Date: [] Patient: Suman Charles 89 y/o M admitted on 07/07/20 for Urinary Retention. Found out from the nurses that when patient arrived on the floor yesterday his catheter was clogged. Which meant during transfer they did not keep his CBI appropriately running. They had to irrigate some clots. Is been running well since. They report though the urine turns pink if they slow down the CBI. Patient reports he is doing well. No fevers chills nausea vomiting. He is pass ing some clots through the urethral meatus and occasionally small clots in the tubing. No flank pain, no bladder pain. Constitutional Vitals: Vital Signs Temp Pulse Resp BP Pulse Ox 98.1 F 76 18 142/68 93 07/08/20 11:54 07/08/20 11:54 07/08/20 11:54 07/08/20 11:54 07/08/20 11:54 Period Temp Pulse Resp BP Sys/Rush Pulse Ox Last 24 Hr 98.0 F-99.4 F 75-77 18-18 121-142/60-72 92-98 Intake and Output 07/07/20 07/08/20 07/08/20 21:59 05:59 13:59 Intake Total 50840 92444 88069 Output Total 64640 85926 22339 Balance -385 -4200 -2500 Weight 209 lb Intake & Output: Intake & Output 07/07/20 07/08/20 07/08/20 21:59 05:59 13:59 Intake Total 59626 25407 06733 Output Total 47265 28786 76471 Balance -385 -4200 -2500 Weight 209 lb Intake: IV 1000 1000 Lactated Ringers 1,000 ml @ 100 1000 1000 mls/hr IV .Q10H [facility] Rx#: [id number] Oral 640 CBI Fluid 80693 35996 94306 Output: CBI Fluid 44037 45415 76796 Other: Meal Dinner Percent of Meal Consumed 50% Feeding Ability Independent Urine Appearance Hematuria Small Blood Clots Large Blood Clots 3-way Urethral Hematuria Hematuria Small Blood Clots Small Blood Clots Large Blood Clots Urine Color [place] Blood Tinged 3-way Urethral [place] Blood Tinged Blood Tinged Urine Odor Normal 3-way Urethral Normal Normal Stool Size Large Stool Color Brown Stool Consistency Dry and Hard Formed Net CBI 375 450 350 General appearance: cooperative; no no acute distress Head Head exam: Present atraumatic, normal inspection and normocephalic Respiratory Respiratory exam: Absent rales, respiratory distress, stridor and wheezes Cardiovascular Cardiovascular exam: Present normal rate and rhythm GI/Abdominal GI/Abdominal exam: Present soft; Absent distended, firm, rebound, rigid and tenderness exam: Present circumcision and urethral discharge (Some blood at meatus); Absent scrotal swelling Additional comments: Catheter in good position draining clear irrigant, when CBI is held urine turns to pale red. OBJ DATA Labs CBC & Chem 7: 07/08/20 05:25 07/08/20 05:25 Labs: Abnormal Lab Results 07/08/20 07/08/20 07/07/20 05:25 05:25 15:41 RBC 4.36 L Hgb 12.7 L 12.7 L Hct 39.5 L RDW 14.6 H MPV 10.9 H [place] % (Auto) 13.0 H Lymph # (Auto) [place] # (Auto) 1.00 H PT INR Glucose 117 H Total Bilirubin 1.6 H GGT 07/07/20 07/07/20 07/07/20 04:40 04:40 04:40 RBC 4.59 L Hgb 13.5 L Hct RDW 14.6 H MPV 10.8 H [place] % (Auto) Lymph # (Auto) 1.35 L [place] # (Auto) 1.01 H PT 15.5 H INR 1.2 H Glucose 106 H Total Bilirubin GGT 83 H Meds: Medications Calcium/Vitamin D (Calcium W/Vit D3) 1,000 mg PO BID [facility] Last Admin: 07/08/20 07:37 Dose: Not Given Documented by: Digoxin (Lanoxin) 250 mcg PO DAILY@1400 [facility] Last Admin: 07/07/20 13:12 Dose: 250 mcg Documented by: Docusate Sodium (Colace) 100 mg PO BID [facility] Last Admin: 07/08/20 07:37 Dose: Not Given Documented by: Hydromorphone HCl (Dilaudid) 0.5 mg IV Q2HP PRN; Protocol PRN Reason: Per Pain Protocol Lactated Ringer's (Lactated Ringers) 1,000 mls @ 100 mls/hr IV .Q10H [facility] Last Infusion: 07/08/20 12:08 Dose: Infused Documented by: Ondansetron HCl (Zofran) 4 mg IV Q6HP PRN PRN Reason: Nausea And Vomiting Sodium Biphosphate/Sodium Phosphate (Fleets Adult) 1 dose [place] DAILYP PRN PRN Reason: Constipation Last Admin: 07/07/20 19:40 Dose: 1 dose Documented by: Sodium Chloride (Saline Flush) 10 ml IV Q8 [facility] Last Admin: 07/08/20 04:01 Dose: Not Given Documented by: Tamsulosin HCl (Flomax) 0.4 mg PO BID [facility] Last Admin: 07/08/20 07:38 Dose: Not Given Documented by: Vitamin D (Vitamin D3) 5,000 unit PO DAILY [facility] Last Admin: 07/08/20 07:38 Dose: Not Given Documented by: A/P Assessment and plan (1) Hematuria: Status: Acute Qualifiers: Hematuria type: gross Qualified Code(s): R31.0 - Gross hematuria Narrative A/P Narrative: Gross hematuria -Suspect patient's bleeding from his prostate. He has had 3 prostate resections but he has a massive gland and they were not sufficient. -He has failed management at [place] -Currently doing well on continuous bladder irrigation -Irrigated more clots out today and will plan to stop by again this afternoon to see if his bleeding has resolved or is continuing -Options were gone over with the patient. We will have the equipment to perform surgery on him early next week. Other option is to transfer to [place] or [place]. Patient has not had successful treatment in [place] as mentioned, transferring him to [place] is not recommended. Continuous bladder irrigation does not do well and ambulance transport and would put this patient at significant risk of further clotting bladder distention or bladder rupture if he was not appropriately monitored during transfer. -There is no urology coverage over the weekend, but the patient is stable and well managed on continuous bladder irrigation and we recommend he stay at this site for urology intervention next week -Urology is back Saturday Time Spent With Patient Time: Total time spent is greater than 50% in coordination of care (as documented) at patient's floor/unit and/or counseling patient: Total time spent with greater than 50% in coordination of care (as documented) at patient's floor/unit and/or counseling patient:: 25 - 35 minutes QUALITY Stroke Symptom Onset Unknown: No VTE Deep Vein Thrombosis/Pulmonary Embolism Present on Admission: No PROC Penile Procedure Consent obtained: verbal consent Date of Procedure: 07/08/20 Time out performed: Yes Indication: other (Hand irrigation for clot evacuation) Sedation/Analgesia: none Patient tolerated procedure: well Complications: none Additional comments: Through the patient's existing catheter, the catheter tip syringe was used to hand irrigate with a liter of sterile water. Multiple clots were evacuated. The patient was then placed back on brisk CBI. It is unclear if these clots were from yesterday or continued bleeding. Will plan to reevaluate later this afternoon.
[2020-07-08] MEDS: DIGOXIN 125 MCG TABLET PO SCH (13:52)
--- NOTE | 2020-07-08 15:15 | Internal Med Progress Note ---
SUBJECTIVE Subjective Patient information: Note initiated : 07/08/20 at 3:08 pm Service Date, if different from initiated Date: [] Patient: Suman Charles a 89 y/o M admitted on 07/07/20 for Urinary Retention. Chief Complaint: [] Interval history: History of present illness: Mr. Charles is a 89 year old M with a history of hematuria, atrial fibrillation, CAD, bladder cancer, and BPH who was sent to the ER by urologist Dr. Mueller after cystoscopy. Patient has been having hematuria for about 1 year which has been worsening recently. he also had acute urinary retention yesterday. He underwent both PVP and then urgent TURP for bleeding by urologist Dr. Cruz. Yesterday patient went to see Dr. Mueller who found him to have urinary retention and pass larger clots when urinating. Cystoscopy was performed yesterday by Dr. Mueller, showing a very enlarged prostate with a large median lobe. I was called to see and admit this patient after the cystoscopy because of gross hematuria and need of CBI. 07/08 Pt feels fine. Does not have complaits. Denies fever or n/v. Vital signs are stable and acceptable Hb 12.7 Creatinine 1.0 07/09 Constitutional Vitals: Vital Signs Temp Pulse Resp BP Pulse Ox 98.1 F 76 18 142/68 93 07/08/20 11:54 07/08/20 11:54 07/08/20 11:54 07/08/20 11:54 07/08/20 11:54 Period Temp Pulse Resp BP Sys/Rush Pulse Ox Last 24 Hr 98.0 F-99.4 F 75-77 18-18 121-142/60-72 92-98 Intake and Output 07/08/20 07/08/20 07/08/20 05:59 13:59 21:59 Intake Total 01514 20353 3240 Output Total 73896 39428 3100 Balance -4200 -2950 140 Intake & Output: Intake & Output 07/08/20 07/08/20 07/08/20 05:59 13:59 21:59 Intake Total 59868 36756 3240 Output Total 01342 72607 3100 Balance -4200 -2950 140 Intake: IV 1000 Lactated Ringers 1,000 ml @ 100 1000 mls/hr IV .Q10H [facility] Rx#: [id number] Oral 240 CBI Fluid 14470 24546 3000 Output: CBI Fluid 43726 24112 3100 Other: Meal Lunch Percent of Meal Consumed 75% Feeding Ability Independent Urine Appearance 3-way Urethral Hematuria Small Blood Clots Urine Color 3-way Urethral [place] Blood Tinged Urine Odor 3-way Urethral Normal Net CBI 450 50 100 Exam: General: Alert, Awake, No acute Distress Eyes/N/T: EOMI, Head/Neck: neck supple, CV: RRR, No murmurs, Pulm: Clear b/l, no wheezing/rhonchi/rales Abd: soft, nontender, +BS x4 Ext: no clubbing/cyanosis/edema Neuro: Alert, no focal deficits, moves all extremities, Skin: warm/dry OBJ DATA Labs CBC & Chem 7: 07/08/20 05:25 07/08/20 05:25 Labs: Abnormal Lab Results 07/08/20 07/08/20 07/07/20 05:25 05:25 15:41 RBC 4.36 L Hgb 12.7 L 12.7 L Hct 39.5 L RDW 14.6 H MPV 10.9 H [place] % (Auto) 13.0 H Lymph # (Auto) [place] # (Auto) 1.00 H PT INR Glucose 117 H Total Bilirubin 1.6 H GGT 07/07/20 07/07/20 07/07/20 04:40 04:40 04:40 RBC 4.59 L Hgb 13.5 L Hct RDW 14.6 H MPV 10.8 H [place] % (Auto) Lymph # (Auto) 1.35 L [place] # (Auto) 1.01 H PT 15.5 H INR 1.2 H Glucose 106 H Total Bilirubin GGT 83 H Meds: Medications Calcium/Vitamin D (Calcium W/Vit D3) 1,000 mg PO BID [facility] Last Admin: 07/08/20 07:37 Dose: Not Given Documented by: Digoxin (Lanoxin) 250 mcg PO DAILY@1400 [facility] Last Admin: 07/08/20 13:52 Dose: 250 mcg Documented by: Docusate Sodium (Colace) 100 mg PO BID [facility] Last Admin: 07/08/20 07:37 Dose: Not Given Documented by: Hydromorphone HCl (Dilaudid) 0.5 mg IV Q2HP PRN; Protocol PRN Reason: Per Pain Protocol Lactated Ringer's (Lactated Ringers) 1,000 mls @ 100 mls/hr IV .Q10H [facility] Last Infusion: 07/08/20 12:08 Dose: Infused Documented by: Ondansetron HCl (Zofran) 4 mg IV Q6HP PRN PRN Reason: Nausea And Vomiting Sodium Biphosphate/Sodium Phosphate (Fleets Adult) 1 dose [place] DAILYP PRN PRN Reason: Constipation Last Admin: 07/07/20 19:40 Dose: 1 dose Documented by: Sodium Chloride (Saline Flush) 10 ml IV Q8 [facility] Last Admin: 07/08/20 13:49 Dose: Not Given Documented by: Tamsulosin HCl (Flomax) 0.4 mg PO BID [facility] Last Admin: 07/08/20 07:38 Dose: Not Given Documented by: Vitamin D (Vitamin D3) 5,000 unit PO DAILY [facility] Last Admin: 07/08/20 07:38 Dose: Not Given Documented by: A/P Narrative A/P Narrative: A: *Hematuria, gross: *Hemorrhage of prostate *Acute urinary retention *Hx of bladder cancer *BPH *Anemia from acute blood loss *Atrial fibrillation: Rate is controlled *CAD, s/p pacemaker placement: P: -management per Urology, currently with CBI, planned procedure for early next week. -monitor H&H -No anticoagulation at this moment, and ASA stopped. Patient understood the risks and benefits of anticoagulation. -cont digoxin - -ppx: SCD CODE STATUS:DNR/DNI Time Spent With Patient Time: Total time spent is greater than 50% in coordination of care (as documented) at patient's floor/unit and/or counseling patient: QUALITY Stroke Symptom Onset Unknown: No VTE Deep Vein Thrombosis/Pulmonary Embolism Present on Admission: No
--- NOTE | 2020-07-08 21:20 | Internal Med Progress Note ---
SUBJECTIVE Subjective Patient information: Note initiated : 07/08/20 at 9:09 pm Service Date, if different from initiated Date: [] Patient: Suman Charles 89 y/o M admitted on 07/07/20 for GROSS HEMATURIA with bleeding from bladder and/or prostate with continuous bladder irrigation. Patient was not admitted for urinary retention. He has significant gross hematuria with clot formation and was admitted initially to observation and continued on continuous bladder irrigation. His bleeding has improved but not ceased and he is still requiring CBI at a slow to moderate drip but requires moderate to fast drip with any movement or manipulation of the catheter. He was hand irrigated by me earlier today and his urine is improving. Still some blood per meatus around the catheter. Otherwise doing well. Constitutional Vitals: Vital Signs Temp Pulse Resp BP Pulse Ox 98.4 F 76 18 128/61 94 07/08/20 16:47 07/08/20 16:47 07/08/20 16:47 07/08/20 16:47 07/08/20 16:47 Period Temp Pulse Resp BP Sys/Rush Pulse Ox Last 24 Hr 98.0 F-99.4 F 75-77 18-18 122-142/60-72 92-94 Intake and Output 07/08/20 07/08/20 07/08/20 05:59 13:59 21:59 Intake Total 68281 75175 95936 Output Total 06329 04774 28905 Balance -4200 -2950 -230 Intake & Output: Intake & Output 07/08/20 07/08/20 07/08/20 05:59 13:59 21:59 Intake Total 53877 96368 68390 Output Total 72833 29682 18203 Balance -4200 -2950 -230 Intake: IV 1000 Lactated Ringers 1,000 ml @ 100 1000 mls/hr IV .Q10H [facility] Rx#: [id number] Oral 720 CBI Fluid 95993 76850 70519 Output: CBI Fluid 80986 44297 65272 Other: Meal Dinner Percent of Meal Consumed 100% Feeding Ability Independent Urine Appearance 3-way Urethral Hematuria Small Blood Clots Urine Color 3-way Urethral [place] Blood Tinged Urine Odor 3-way Urethral Normal Net CBI 450 50 250 General appearance: cooperative and no acute distress Respiratory Respiratory exam: Present normal respiratory exam; Absent respiratory distress and wheezes Cardiovascular Cardiovascular exam: Present normal rate and rhythm GI/Abdominal GI/Abdominal exam: Present soft; Absent distended, rigid and tenderness exam: Present circumcision and urethral discharge (bloody ); Absent scrotal swelling Additional comments: 3 way monge in good position and now urine in tubing is pale pink on slow drip, turns light dwyer with manipulation. improved from earlier today and yesterday. OBJ DATA Labs CBC & Chem 7: 07/08/20 05:25 07/08/20 05:25 Labs: Abnormal Lab Results 07/08/20 07/08/20 07/07/20 05:25 05:25 15:41 RBC 4.36 L Hgb 12.7 L 12.7 L Hct 39.5 L RDW 14.6 H MPV 10.9 H [place] % (Auto) 13.0 H Lymph # (Auto) [place] # (Auto) 1.00 H PT INR Glucose 117 H Total Bilirubin 1.6 H GGT 07/07/20 07/07/20 07/07/20 04:40 04:40 04:40 RBC 4.59 L Hgb 13.5 L Hct RDW 14.6 H MPV 10.8 H [place] % (Auto) Lymph # (Auto) 1.35 L [place] # (Auto) 1.01 H PT 15.5 H INR 1.2 H Glucose 106 H Total Bilirubin GGT 83 H Meds: Medications Calcium/Vitamin D (Calcium W/Vit D3) 1,000 mg PO BID [facility] Last Admin: 07/08/20 20:42 Dose: 1,000 mg Documented by: Digoxin (Lanoxin) 250 mcg PO DAILY@1400 [facility] Last Admin: 07/08/20 13:52 Dose: 250 mcg Documented by: Docusate Sodium (Colace) 100 mg PO BID [facility] Last Admin: 07/08/20 20:43 Dose: 100 mg Documented by: Hydromorphone HCl (Dilaudid) 0.5 mg IV Q2HP PRN; Protocol PRN Reason: Per Pain Protocol Ondansetron HCl (Zofran) 4 mg IV Q6HP PRN PRN Reason: Nausea And Vomiting Sodium Biphosphate/Sodium Phosphate (Fleets Adult) 1 dose [place] DAILYP PRN PRN Reason: Constipation Last Admin: 07/07/20 19:40 Dose: 1 dose Documented by: Sodium Chloride (Saline Flush) 10 ml IV Q8 [facility] Last Admin: 07/08/20 20:43 Dose: 10 ml Documented by: Tamsulosin HCl (Flomax) 0.4 mg PO BID [facility] Last Admin: 07/08/20 20:42 Dose: 0.4 mg Documented by: Vitamin D (Vitamin D3) 5,000 unit PO DAILY [facility] Last Admin: 07/08/20 07:38 Dose: Not Given Documented by: A/P Assessment and plan (1) Hematuria: Status: Acute Qualifiers: Hematuria type: gross Qualified Code(s): R31.0 - Gross hematuria Narrative A/P Narrative: 1) GROSS HEMATURIA: -Patient has h/o bladder cancer and a massive prostate on CT scan -he has significant bleeding/gross hematuria requiring continuous bladder irrigation. This required admission for observation initially. -his urine is improved, but the gross hematuria has not resolved -he needs continued inpatient management for his gross hematuria and continuous bladder irrigation and will change his status to inpatient -plan to continue CBI over the weekend and trial slowing the rate and monitor for return hematuria QD -hand irrigate as needed for clots/obstruction -keep the drainage tubing well secured to his thigh (and tension free) with 2 inch silk tape -if not improved, then will take to surgery early next week -given his massive gland size he is not the best candidate for greenlight laser nor the monopolar TURP. Bipolar TURP ordered for this patient. -defer cystoscopy and fulguration given his massive gland size and the likely friable lesion (bladder tumor or median lobe) protruding into the bladder on CT scan. He will need formal resection. -urology is unavailable over the weekend. If any emergency he is to be transferr ed to [place]. Time Spent With Patient Time: Total time spent is greater than 50% in coordination of care (as documented) at patient's floor/unit and/or counseling patient: Total time spent with greater than 50% in coordination of care (as documented) at patient's floor/unit and/or counseling patient:: 25 - 35 minutes QUALITY Stroke Symptom Onset Unknown: No VTE Deep Vein Thrombosis/Pulmonary Embolism Present on Admission: No
--- NOTE | 2020-07-08 22:03 | Internal Med Progress Note ---
SUBJECTIVE Subjective Patient information: Note initiated : 07/08/20 at 10:01 pm Service Date, if different from initiated Date: [] Patient: Suman Charles a 89 y/o M admitted on 07/07/20 for Urinary Retention. Chief Complaint: [] Mr. Charles is a 89 year old M with a history of hematuria, atrial fibrillation, CAD, bladder cancer, and BPH who was sent to the ER by urologist Dr. Mueller after cystoscopy. Patient has been having hematuria for about 1 year which has been worsening recently. he also had acute urinary retention yesterday. He underwent both PVP and then urgent TURP for bleeding by urologist Dr. Cruz. Yesterday patient went to see Dr. Mueller who found him to have urinary reten tion and pass larger clots when urinating. Cystoscopy was performed yesterday by Dr. Meuller, showing a very enlarged prostate with a large median lobe. I was called to see and admit this patient after the cystoscopy because of gross hematuria and need of CBI. 07/08 Pt feels fine. Does not have complaits. Denies fever or n/v. Vital signs are stable and acceptable Hb 12.7 Creatinine 1.0 Review of Systems All systems: reviewed and no additional remarkable complaints except as stated Constitutional Vitals: Vital Signs Temp Pulse Resp BP Pulse Ox 98.4 F 76 18 128/61 94 07/08/20 16:47 07/08/20 16:47 07/08/20 16:47 07/08/20 16:47 07/08/20 16:47 Period Temp Pulse Resp BP Sys/Rush Pulse Ox Last 24 Hr 98.0 F-99.4 F 75-77 18-18 122-142/60-72 92-94 Intake and Output 07/08/20 07/08/20 07/09/20 13:59 21:59 05:59 Intake Total 71719 01191 Output Total 81333 54761 Balance -2950 -230 Intake & Output: Intake & Output 07/08/20 07/08/20 07/09/20 13:59 21:59 05:59 Intake Total 03771 18516 Output Total 25436 16838 Balance -2950 -230 Intake: IV 1000 Lactated Ringers 1,000 ml @ 100 1000 mls/hr IV .Q10H [facility] Rx#: [id number] Oral 720 CBI Fluid 04462 67457 Output: CBI Fluid 90573 62451 Other: Meal Dinner Percent of Meal Consumed 100% Feeding Ability Independent Urine Appearance 3-way Urethral Hematuria Small Blood Clots Urine Color 3-way Urethral [place] Blood Tinged Urine Odor 3-way Urethral Normal Net CBI 50 250 Additional findings Additional findings: General - No acute distress Eyes - PERRLA, EOM intact ENT no rhinorrhea, no noticeable or palpable swelling, no redness or rash around throat or on face Neck supple, no JVD, no thyromegaly Respiratory: Lungs -clear, no wheezing or crackles. Cardiovascular - RRR no m/r/g, GI - Normal bowel sounds, no distended, soft. Extremeties - No edema, cyanosis or clubbing. venous stasis. Hemo/lymphatic/immune no lymphadenopathy Neurological Alert and oriented x 3, no focal neurological deficits. Psychiatry flat affect OBJ DATA Labs CBC & Chem 7: 07/08/20 05:25 07/08/20 05:25 Labs: Abnormal Lab Results 07/08/20 07/08/20 07/07/20 05:25 05:25 15:41 RBC 4.36 L Hgb 12.7 L 12.7 L Hct 39.5 L RDW 14.6 H MPV 10.9 H [place] % (Auto) 13.0 H Lymph # (Auto) [place] # (Auto) 1.00 H PT INR Glucose 117 H Total Bilirubin 1.6 H GGT 07/07/20 07/07/20 07/07/20 04:40 04:40 04:40 RBC 4.59 L Hgb 13.5 L Hct RDW 14.6 H MPV 10.8 H [place] % (Auto) Lymph # (Auto) 1.35 L [place] # (Auto) 1.01 H PT 15.5 H INR 1.2 H Glucose 106 H Total Bilirubin GGT 83 H Meds: Medications Calcium/Vitamin D (Calcium W/Vit D3) 1,000 mg PO BID [facility] Last Admin: 07/08/20 20:42 Dose: 1,000 mg Documented by: Digoxin (Lanoxin) 250 mcg PO DAILY@1400 [facility] Last Admin: 07/08/20 13:52 Dose: 250 mcg Documented by: Docusate Sodium (Colace) 100 mg PO BID [facility] Last Admin: 07/08/20 20:43 Dose: 100 mg Documented by: Hydromorphone HCl (Dilaudid) 0.5 mg IV Q2HP PRN; Protocol PRN Reason: Per Pain Protocol Ondansetron HCl (Zofran) 4 mg IV Q6HP PRN PRN Reason: Nausea And Vomiting Sodium Biphosphate/Sodium Phosphate (Fleets Adult) 1 dose [place] DAILYP PRN PRN Reason: Constipation Last Admin: 07/07/20 19:40 Dose: 1 dose Documented by: Sodium Chloride (Saline Flush) 10 ml IV Q8 [facility] Last Admin: 07/08/20 20:43 Dose: 10 ml Documented by: Tamsulosin HCl (Flomax) 0.4 mg PO BID [facility] Last Admin: 07/08/20 20:42 Dose: 0.4 mg Documented by: Vitamin D (Vitamin D3) 5,000 unit PO DAILY [facility] Last Admin: 07/08/20 07:38 Dose: Not Given Documented by: A/P Narrative A/P Narrative: 1. Hematuria, gross 2. Hemorrhage of prostate 3. Acute urinary retention 4. Hx of bladder cancer 5. BPH Managed by urology team [address] catheter placed keep CBI titration 6. Anemia from acute blood loss Hb 12.7 today H/H Q12hrs 7. Atrial fibrillation Rate is controlled No anticoagulation at this moment. Patient understood the risks and benefits of anticoagulation. 8. CAD, s/p pacemaker placement Continue home medication 9. DVT prophylaxis: SCD 10. CODE STATUS:DNR/DNI Time Spent With Patient Time: Total time spent is greater than 50% in coordination of care (as documented) at patient's floor/unit and/or counseling patient: QUALITY Stroke Symptom Onset Unknown: No VTE Deep Vein Thrombosis/Pulmonary Embolism Present on Admission: No
[2020-07-08] MEDS ORDERED: ACETAMINOPHEN 500 MG TABLET PO PRN (22:14)
[2020-07-08] MEDS: ACETAMINOPHEN 160 MG/5 ML ORAL.SOL PO PRN (22:19)
[2020-07-08] MEDS ORDERED: ACETAMINOPHEN 325 MG TABLET PO ONE (22:24)
[2020-07-09 06:37] LABS: Hematocrit 41.3 % (40.1-51.0); Hemoglobin 12.9 g/dL (13.7-17.5)
[2020-07-09 07:32] LABS: ALT/SGPT 19 U/l (0-40); AST/SGOT 18 U/l (0-37); Albumin 3.5 gm/dL (3.2-5.2); Albumin/Globulin Ratio 1.1 (1.0-2.3); Alkaline Phosphatase 103 U/L (39-117); Bilirubin,Direct 0.5 mg/dL (0.0-0.3); Bilirubin,Total 1.7 mg/dL (0.0-1.0); Blood Urea Nitrogen 13 mg/dl (8-23); Calcium 10.2 mg/dl (8.6-10.4); Carbon Dioxide 25 mmol/L (22-30); Chloride 104 mmol/L (96-108); Globulin 3.2 gm/dL (2.2-3.7); Glomerular Filtration Rate 67; Glucose 105 mg/dL (70-105); Lactate Dehydrogenase 167 U/L (94-250); Phosphorous 3.3 mg/dL (2.7-4.5); Triglycerides 82 mg/dl (<150)
--- NOTE | 2020-07-09 08:12 | Internal Med Progress Note ---
SUBJECTIVE Subjective Patient information: Note initiated : 07/09/20 at 8:10 am Service Date, if different from initiated Date: [] Patient: Suman Charles a 89 y/o M admitted on 07/08/20 for Urinary Retention. Chief Complaint: [] Interval history: History of present illness: Mr. Charles is a 89 year old M with a history of hematuria, atrial fibrillation, CAD, bladder cancer, and BPH who was sent to the ER by urologist Dr. Mueller after cystoscopy. Patient has been having hematuria for about 1 year which has been worsening recently. he also had acute urinary retention yesterday. He underwent both PVP and then urgent TURP for bleeding by urologist Dr. Cruz. Yesterday patient went to see Dr. Mueller who found him to have urinary retention and pass larger clots when urinating. Cystoscopy was performed yesterday by Dr. Mueller, showing a very enlarged prostate with a large median lobe. I was called to see and admit this patient after the cystoscopy because of gross hematuria and need of CBI. 07/08 Pt feels fine. Does not have complaits. Denies fever or n/v. Vital signs are stable and acceptable Hb 12.7 Creatinine 1.0 07/09 No new complaints overnight events. CBI in place. Red Aravind-Aid colored fluid in [place]pard bag. Review of Systems: denies headache/fever/chills/nausea/vomiting/chest or abdominal pain/cough/dyspnea/diarrhea. Otherwise see above. Constitutional Vitals: Vital Signs Temp Pulse Resp BP Pulse Ox 97.8 F 75 18 122/69 93 07/09/20 07:24 07/09/20 07:24 07/09/20 07:24 07/09/20 07:24 07/09/20 07:24 Period Temp Pulse Resp BP Sys/Rush Pulse Ox Last 24 Hr 97.8 F-99.2 F 71-80 16-18 117-142/60-73 91-94 Intake and Output 07/08/20 07/09/20 07/09/20 21:59 05:59 13:59 Intake Total 87899 6750 3000 Output Total 82911 4475 2665 Balance 5490 -784 -565 Weight 96.933 kg Intake & Output: Intake & Output 07/08/20 07/09/20 07/09/20 21:59 05:59 13:59 Intake Total 96792 6750 3000 Output Total 55416 7475 3625 Balance 7612 -653 -657 Weight 96.933 kg Intake: Oral 720 750 CBI Fluid 33156 6000 3000 Output: CBI Fluid 04955 7475 3625 Other: Meal Dinner Percent of Meal Consumed 100% Feeding Ability Independent Urine Appearance Hematuria Small Blood Clots Large Blood Clots 3-way Urethral Clear Clear Urine Color [place] Blood Tinged 3-way Urethral Pale Pale [place] Urine Odor Normal Stool Size Large Stool Color Brown Stool Consistency Dry and Hard Formed Net CBI 250 625 625 Exam: General: Alert, Awake, No acute Distress Eyes/N/T: EOMI, Head/Neck: neck supple, CV: RRR, 2/6 SM Pulm: Clear b/l, no wheezing/rhonchi/rales Abd: soft, nontender, +BS x4 Ext: no clubbing/cyanosis/edema Neuro: Alert, no focal deficits, moves all extremities, Skin: warm/dry OBJ DATA Labs CBC & Chem 7: 07/09/20 05:25 07/09/20 05:25 Labs: Abnormal Lab Results 07/09/20 07/09/20 07/08/20 05:25 05:25 05:25 RBC Hgb 12.9 L Hct RDW MPV [place] % (Auto) Lymph # (Auto) [place] # (Auto) PT INR Glucose 117 H Total Bilirubin 1.7 H 1.6 H Direct Bilirubin 0.5 H GGT 82 H 07/08/20 07/07/20 07/07/20 05:25 15:41 04:40 RBC 4.36 L Hgb 12.7 L 12.7 L Hct 39.5 L RDW 14.6 H MPV 10.9 H [place] % (Auto) 13.0 H Lymph # (Auto) [place] # (Auto) 1.00 H PT INR Glucose 106 H Total Bilirubin Direct Bilirubin GGT 83 H 07/07/20 07/07/20 04:40 04:40 RBC 4.59 L Hgb 13.5 L Hct RDW 14.6 H MPV 10.8 H [place] % (Auto) Lymph # (Auto) 1.35 L [place] # (Auto) 1.01 H PT 15.5 H INR 1.2 H Glucose Total Bilirubin Direct Bilirubin GGT Meds: Medications Acetaminophen (Tylenol) 650 mg PO Q6HP PRN; Protocol PRN Reason: Per Pain Protocol Last Admin: 07/08/20 22:19 Dose: 650 mg Documented by: Calcium/Vitamin D (Calcium W/Vit D3) 1,000 mg PO BID [facility] Last Admin: 07/08/20 20:42 Dose: 1,000 mg Documented by: Digoxin (Lanoxin) 250 mcg PO DAILY@1400 [facility] Last Admin: 07/08/20 13:52 Dose: 250 mcg Documented by: Docusate Sodium (Colace) 100 mg PO BID [facility] Last Admin: 07/08/20 20:43 Dose: 100 mg Documented by: Hydromorphone HCl (Dilaudid) 0.5 mg IV Q2HP PRN; Protocol PRN Reason: Per Pain Protocol Ondansetron HCl (Zofran) 4 mg IV Q6HP PRN PRN Reason: Nausea And Vomiting Sodium Biphosphate/Sodium Phosphate (Fleets Adult) 1 dose [place] DAILYP PRN PRN Reason: Constipation Last Admin: 07/07/20 19:40 Dose: 1 dose Documented by: Sodium Chloride (Saline Flush) 10 ml IV Q8 [facility] Last Admin: 07/08/20 20:43 Dose: 10 ml Documented by: Tamsulosin HCl (Flomax) 0.4 mg PO BID [facility] Last Admin: 07/08/20 20:42 Dose: 0.4 mg Documented by: Vitamin D (Vitamin D3) 5,000 unit PO DAILY [facility] Last Admin: 07/08/20 07:38 Dose: Not Given Documented by: A/P Narrative A/P Narrative: A: *Hematuria, gross: *Hemorrhage of prostate: *Acute urinary retention: *Hx of bladder cancer: *BPH: *Anemia from acute blood loss: stable *Atrial fibrillation: Rate is controlled *CAD, s/p pacemaker placement: *[place] on cpap: P: -management per Urology, currently with CBI, planned procedure for early next week. -monitor H&H -No anticoagulation at this moment, and ASA stopped. Patient understood the risks and benefits of anticoagulation. -cont digoxin -home cpap -ppx: SCD CODE STATUS:DNR/DNI Time Spent With Patient Time: Total time spent is greater than 50% in coordination of care (as documented) at patient's floor/unit and/or counseling patient: QUALITY Stroke Symptom Onset Unknown: No VTE Deep Vein Thrombosis/Pulmonary Embolism Present on Admission: No
[2020-07-09] MEDS: ACETAMINOPHEN 160 MG/5 ML ORAL.SOL PO PRN (08:22)
[2020-07-09] MEDS: TAMSULOSIN 0.4 MG CAPSULE PO SCH ×2 (08:23→21:04)
[2020-07-09] MEDS: VITAMIN D3 5,000 UNIT CAPSULE PO SCH (08:23)
[2020-07-09] MEDS: CALCIUM W/VIT D3 500 MG TABLET PO SCH ×2 (08:23→21:03)
[2020-07-09] MEDS: DOCUSATE SODIUM 100 MG CAPSULE PO SCH ×2 (08:23→21:03)
[2020-07-09] MEDS: 0.9 % SODIUM CHLORIDE 10 ML SYRINGE IV SCH ×3 (08:23→21:04)
[2020-07-09] MEDS: ACETAMINOPHEN 325 MG TABLET PO PRN ×2 (13:01→23:50)
[2020-07-09] MEDS: DIGOXIN 125 MCG TABLET PO SCH (14:17)
[2020-07-10 06:42] LABS: Hematocrit 41.8 % (41.0-55.0); Hemoglobin 13.3 g/dL (13.5-16.5)
--- NOTE | 2020-07-10 08:30 | Internal Med Progress Note ---
SUBJECTIVE Subjective Patient information: Note initiated : 07/10/20 at 8:29 am Service Date, if different from initiated Date: [] Patient: Suman Charles a 89 y/o M admitted on 07/08/20 for Urinary Retention. Chief Complaint: [] Interval history: History of present illness: Mr. Charles is a 89 year old M with a history of hematuria, atrial fibrillation, CAD, bladder cancer, and BPH who was sent to the ER by urologist Dr. Mueller after cystoscopy. Patient has been having hematuria for about 1 year which has been worsening recently. he also had acute urinary retention yesterday. He underwent both PVP and then urgent TURP for bleeding by urologist Dr. Cruz. Yesterday patient went to see Dr. Mueller who found him to have urinary retention and pass larger clots when urinating. Cystoscopy was performed yesterday by Dr. Mueller, showing a very enlarged prostate with a large median lobe. I was called to see and admit this patient after the cystoscopy because of gross hematuria and need of CBI. 07/08 Pt feels fine. Does not have complaits. Denies fever or n/v. Vital signs are stable and acceptable Hb 12.7 Creatinine 1.0 07/09 No new complaints overnight events. CBI in place. Red Aravind-Aid colored fluid in [place] bag. 07/10 States poor sleep because his is in the hospital over [place]. Otherwise no new complaints overnight events. Review of Systems: denies headache/fever/chills/nausea/vomiting/chest or abdominal pain/cough/ dyspnea/diarrhea. Otherwise see above. Constitutional Vitals: Vital Signs Temp Pulse Resp BP Pulse Ox 97.4 F 78 16 110/63 92 07/10/20 03:15 07/10/20 03:15 07/10/20 03:15 07/10/20 03:15 07/10/20 03:15 Period Temp Pulse Resp BP Sys/Rush Pulse Ox Last 24 Hr 97.4 F-98.9 F 75-78 16 110-146/57-75 92-96 Intake and Output 07/09/20 07/10/20 07/10/20 21:59 05:59 13:59 Intake Total 2770 7040 Output Total 5922 7338 Balance -1150 -285 Weight 94.801 kg Intake & Output: Intake & Output 07/09/20 07/10/20 07/10/20 21:59 05:59 13:59 Intake Total 6200 7040 Output Total 7350 7325 Balance -1150 -285 Weight 94.801 kg Intake: Oral 200 1040 CBI Fluid 6000 6000 Output: CBI Fluid 7350 7325 Other: Meal Dinner Percent of Meal Consumed 75% Feeding Ability Independent Urine Appearance 3-way Urethral Clear Urine Color 3-way Urethral Pale [place] Net CBI 450 600 Exam: General: Alert, Awake, No acute Distress Eyes/N/T: EOMI, Head/Neck: neck supple, CV: RRR, 2/6 SM Pulm: Clear b/l, no wheezing/rhonchi/rales Abd: soft, nontender, +BS x4 Ext: no clubbing/cyanosis/edema Neuro: Alert, no focal deficits, moves all extremities, Skin: warm/dry OBJ DATA Labs CBC & Chem 7: 07/10/20 05:50 07/09/20 05:25 Labs: Abnormal Lab Results 07/10/20 07/09/20 07/09/20 05:50 05:25 05:25 RBC Hgb 13.3 L 12.9 L Hct RDW MPV [place] % (Auto) [place] # (Auto) Glucose Total Bilirubin 1.7 H Direct Bilirubin 0.5 H GGT 82 H 07/08/20 07/08/20 07/07/20 05:25 05:25 15:41 RBC 4.36 L Hgb 12.7 L 12.7 L Hct 39.5 L RDW 14.6 H MPV 10.9 H [place] % (Auto) 13.0 H [place] # (Auto) 1.00 H Glucose 117 H Total Bilirubin 1.6 H Direct Bilirubin GGT Meds: Medications Acetaminophen (Tylenol) 650 mg PO Q4-6HP PRN; Protocol PRN Reason: Per Pain Protocol Last Admin: 07/09/20 23:50 Dose: 650 mg Documented by: Calcium/Vitamin D (Calcium W/Vit D3) 1,000 mg PO BID [facility] Last Admin: 07/09/20 21:03 Dose: 1,000 mg Documented by: Digoxin (Lanoxin) 250 mcg PO DAILY@1400 [facility] Last Admin: 07/09/20 14:17 Dose: 250 mcg Documented by: Docusate Sodium (Colace) 100 mg PO BID [facility] Last Admin: 07/09/20 21:03 Dose: 100 mg Documented by: Hydromorphone HCl (Dilaudid) 0.5 mg IV Q2HP PRN; Protocol PRN Reason: Per Pain Protocol Ondansetron HCl (Zofran) 4 mg IV Q6HP PRN PRN Reason: Nausea And Vomiting Sodium Biphosphate/Sodium Phosphate (Fleets Adult) 1 dose [place] DAILYP PRN PRN Reason: Constipation Last Admin: 07/07/20 19:40 Dose: 1 dose Documented by: Sodium Chloride (Saline Flush) 10 ml IV Q8 [facility] Last Admin: 07/09/20 21:04 Dose: 10 ml Documented by: Tamsulosin HCl (Flomax) 0.4 mg PO BID [facility] Last Admin: 07/09/20 21:04 Dose: 0.4 mg Documented by: Vitamin D (Vitamin D3) 5,000 unit PO DAILY [facility] Last Admin: 07/09/20 08:23 Dose: 5,000 unit Documented by: A/P Assessment and plan (1) Hematuria: Status: Acute Qualifiers: Hematuria type: gross Qualified Code(s): R31.0 - Gross hematuria Narrative A/P Narrative: A: *Hematuria, gross: *Hemorrhage of prostate: *Acute urinary retention: *Hx of bladder cancer: *BPH: *Anemia from acute blood loss: -H&H stable *Atrial fibrillation: Rate is controlled *CAD, s/p pacemaker placement: *[place] on cpap: P: -management per Urology, currently with CBI, planned procedure for early next w [place]. -monitor H&H -No anticoagulation at this moment, and ASA stopped. Patient understood the risks and benefits of anticoagulation. -cont digoxin -home cpap -ppx: SCD CODE STATUS:DNR/DNI Time Spent With Patient Time: Total time spent is greater than 50% in coordination of care (as documented) at patient's floor/unit and/or counseling patient: QUALITY Stroke Symptom Onset Unknown: No VTE Deep Vein Thrombosis/Pulmonary Embolism Present on Admission: No
[2020-07-10] MEDS: VITAMIN D3 5,000 UNIT CAPSULE PO SCH (08:48)
[2020-07-10] MEDS: DOCUSATE SODIUM 100 MG CAPSULE PO SCH ×2 (08:48→22:27)
[2020-07-10] MEDS: CALCIUM W/VIT D3 500 MG TABLET PO SCH ×2 (08:48→22:27)
[2020-07-10] MEDS: 0.9 % SODIUM CHLORIDE 10 ML SYRINGE IV SCH ×3 (08:48→22:27)
[2020-07-10] MEDS: TAMSULOSIN 0.4 MG CAPSULE PO SCH ×2 (08:48→22:27)
[2020-07-10] MEDS: DIGOXIN 125 MCG TABLET PO SCH (14:31)
[2020-07-10] MEDS ORDERED: POLYVINYL ALCOHOL OPHTH DROPS 15ML BOTTLE OU PRN (16:49)
[2020-07-11] MEDS: HYDROmorphone 0.5 MG/0.5 ML SYRINGE IV PRN ×2 (01:11→05:43)
[2020-07-11] MEDS: 0.9 % SODIUM CHLORIDE 10 ML SYRINGE IV SCH ×3 (04:24→20:21)
[2020-07-11] MEDS: CALCIUM W/VIT D3 500 MG TABLET PO SCH ×3 (05:14→20:22)
[2020-07-11 06:20] LABS: Hematocrit 42.4 % (41.0-55.0); Hemoglobin 13.6 g/dL (13.5-16.5)
--- NOTE | 2020-07-11 07:35 | Internal Med Progress Note ---
SUBJECTIVE Subjective Patient information: Note initiated : 07/11/20 at 7:34 am Service Date, if different from initiated Date: [] Patient: Suman Charles a 89 y/o M admitted on 07/08/20 for Urinary Retention. Chief Complaint: [] Interval history: History of present illness: Mr. Charles is a 89 year old M with a history of hematuria, atrial fibrillation, CAD, bladder cancer, and BPH who was sent to the ER by urologist Dr. Mueller after cystoscopy. Patient has been having hematuria for about 1 year which has been worsening recently. he also had acute urinary retention yesterday. He underwent both PVP and then urgent TURP for bleeding by urologist Dr. Cruz. Yesterday patient went to see Dr. Mueller who found him to have urinary retention and pass larger clots when urinating. Cystoscopy was performed yesterday by Dr. Mueller, showing a very enlarged prostate with a large median lobe. I was called to see and admit this patient after the cystoscopy because of gross hematuria and need of CBI. 07/08 Pt feels fine. Does not have complaits. Denies fever or n/v. Vital signs are stable and acceptable Hb 12.7 Creatinine 1.0 07/09 No new complaints overnight events. CBI in place. Red Aravind-Aid colored fluid in [place] bag. 07/10 States poor sleep because his is in the hospital over [place]. Otherwise no new complaints overnight events. 07/11 Patient complained of crampy abdominal pain. Bladder distention discomfort. Otherwise no other complaints. Review of Systems: denies headache/fever/chills/nausea/vomiting/chest pain/cough/dyspnea/diarrhea. Otherwise see above. Constitutional Vitals: Vital Signs Temp Pulse Resp BP Pulse Ox 97.3 F 75 16 91/56 93 07/11/20 06:55 07/11/20 06:55 07/11/20 04:18 07/11/20 06:55 07/11/20 06:55 Period Temp Pulse Resp BP Sys/Rush Pulse Ox Last 24 Hr 97.3 F-99.3 F 68-76 16-20 91-127/56-69 91-95 Intake and Output 07/10/20 07/11/20 07/11/20 21:59 05:59 13:59 Intake Total 6240 05208 3000 Output Total 6700 02345 3600 Balance -460 -259 -959 Weight 93.1 kg Intake & Output: Intake & Output 07/10/20 07/11/20 07/11/20 21:59 05:59 13:59 Intake Total 6240 25855 3000 Output Total 6700 69689 360 Balance -046 -647 -907 Weight 93.1 kg Intake: Oral 240 600 CBI Fluid 6000 66629 3000 Output: CBI Fluid 6700 14934 3600 Other: Meal Dinner Percent of Meal Consumed 75% Urine Appearance Clear Clear 3-way Urethral Hematuria Clear Small Blood Clots Large Blood Clots Urine Color Pale Pale [place] 3-way Urethral [place] Pale Urine Odor Normal Normal Net CBI 400 100 600 Net Peritoneal UF 400 0 Exam: General: Alert, Awake, No acute Distress Eyes/N/T: EOMI, Head/Neck: neck supple, CV: RRR, 2/6 SM Pulm: Clear b/l, no wheezing/rhonchi/rales Abd: soft, mild lower abd TTP over bladder distended, +BS x4 Ext: no clubbing/cyanosis/edema Neuro: Alert, no focal deficits, moves all extremities, Skin: warm/dry OBJ DATA Labs CBC & Chem 7: 07/11/20 05:15 07/09/20 05:25 Labs: Abnormal Lab Results 07/10/20 07/09/20 07/09/20 05:50 05:25 05:25 Hgb 13.3 L 12.9 L Glucose Total Bilirubin 1.7 H Direct Bilirubin 0.5 H GGT 82 H 07/08/20 05:25 Hgb Glucose 117 H Total Bilirubin 1.6 H Direct Bilirubin GGT Meds: Medications Acetaminophen (Tylenol) 650 mg PO Q4-6HP PRN; Protocol PRN Reason: Per Pain Protocol Last Admin: 07/09/20 23:50 Dose: 650 mg Documented by: Artificial Tears (Artificial Tears Ophth Drops) 1 gtt OU QIDP PRN PRN Reason: Dry Eye(s) Calcium/Vitamin D (Calcium W/Vit D3) 1,000 mg PO BID [facility] Last Admin: 07/11/20 05:14 Dose: Not Given Documented by: Digoxin (Lanoxin) 250 mcg PO DAILY@1400 [facility] Last Admin: 07/10/20 14:31 Dose: 250 mcg Documented by: Docusate Sodium (Colace) 100 mg PO BID [facility] Last Admin: 07/10/20 22:27 Dose: 100 mg Documented by: Hydromorphone HCl (Dilaudid) 0.5 mg IV Q2HP PRN; Protocol PRN Reason: Per Pain Protocol Last Admin: 07/11/20 05:43 Dose: 0.5 mg Documented by: Ondansetron HCl (Zofran) 4 mg IV Q6HP PRN PRN Reason: Nausea And Vomiting Sodium Biphosphate/Sodium Phosphate (Fleets Adult) 1 dose [place] DAILYP PRN PRN Reason: Constipation Last Admin: 07/07/20 19:40 Dose: 1 dose Documented by: Sodium Chloride (Saline Flush) 10 ml IV Q8 [facility] Last Admin: 07/11/20 04:24 Dose: 10 ml Documented by: Tamsulosin HCl (Flomax) 0.4 mg PO BID [facility] Last Admin: 07/10/20 22:27 Dose: 0.4 mg Documented by: Vitamin D (Vitamin D3) 5,000 unit PO DAILY [facility] Last Admin: 07/10/20 08:48 Dose: 5,000 unit Documented by: A/P Assessment and plan (1) Hematuria: Status: Acute Qualifiers: Hematuria type: gross Qualified Code(s): R31.0 - Gross hematuria Narrative A/P Narrative: A: *Hematuria, gross: *Hemorrhage of prostate: *Acute urinary retention: *Hx of bladder cancer: *BPH: *Anemia from acute blood loss: -H&H stable *Atrial fibrillation: Rate is controlled *CAD, s/p pacemaker placement: *[place] on cpap: P: -management per Urology, currently with CBI, planned procedure for early next week. -monitor H&H -No anticoagulation at this moment, and ASA stopped. Patient understood the risks and benefits of anticoagulation. -cont digoxin -home cpap -ppx: SCD CODE STATUS:DNR/DNI Time Spent With Patient Time: Total time spent is greater than 50% in coordination of care (as documented) at patient's floor/unit and/or counseling patient: QUALITY Stroke Symptom Onset Unknown: No VTE Deep Vein Thrombosis/Pulmonary Embolism Present on Admission: No
[2020-07-11] MEDS ORDERED: HYDROcodone/APAP 5/325MG TABLET PO PRN (09:01)
[2020-07-11] MEDS ORDERED: IPRATROPIUM/ALBUTEROL 3 ML AMPUL.NEB NEB PRN (09:04)
[2020-07-11] MEDS: ACETAMINOPHEN 325 MG TABLET PO PRN (09:21)
[2020-07-11] MEDS: VITAMIN D3 5,000 UNIT CAPSULE PO SCH (10:40)
[2020-07-11] MEDS: TAMSULOSIN 0.4 MG CAPSULE PO SCH ×2 (10:41→20:22)
[2020-07-11] MEDS: DOCUSATE SODIUM 100 MG CAPSULE PO SCH ×2 (10:41→20:22)
[2020-07-11] MEDS: DIGOXIN 125 MCG TABLET PO SCH (15:14)
[2020-07-11] MEDS: CARBOXYMETHYLCELLULOSE SODIUM 1 EACH DROPER.GEL OU PRN ×2 (18:03→19:30)
--- NOTE | 2020-07-11 19:16 | Internal Med Progress Note ---
SUBJECTIVE Subjective Patient information: Note initiated : 07/11/20 at 7:10 pm Service Date, if different from initiated Date: [] Patient: Suman Charles 89 y/o M admitted on 07/08/20 for Urinary Retention.gross hematuria and bladder/prostate bleeding that has failed conservative management. He tolerated CBI over the weekend but with some clots and intermittent pain. Suspect he is having bladder spasms and has not received B and O supp. CBI currently clear to pale pink on slow drip. no current pain. no fevers, no chills, no nausea no emesis. Constitutional Vitals: Vital Signs Temp Pulse Resp BP Pulse Ox 97.9 F 78 22 149/71 97 07/11/20 18:47 07/11/20 18:47 07/11/20 18:47 07/11/20 18:47 07/11/20 18:47 Period Temp Pulse Resp BP Sys/Rush Pulse Ox Last 24 Hr 97.3 F-99.3 F 75-78 16-22 91-149/56-78 92-97 Intake and Output 07/11/20 07/11/20 07/11/20 05:59 13:59 21:59 Intake Total 63797 3480 9600 Output Total 21739 3600 68369 Balance -415 -120 -1375 Intake & Output: Intake & Output 07/11/20 07/11/20 07/11/20 05:59 13:59 21:59 Intake Total 34325 3480 9600 Output Total 13230 3600 76395 Balance -415 -120 -1375 Intake: Oral 600 480 600 CBI Fluid 34109 3000 9000 Output: CBI Fluid 56823 3600 26743 Other: Meal Lunch Percent of Meal Consumed 50% Feeding Ability Independent Urine Appearance Clear 3-way Urethral Clear Clear Urine Color Pale Pale [place] 3-way Urethral Pale Pale Urine Odor Normal Net CBI 939 717 9494 Net Peritoneal UF 0 Head Head exam: Present atraumatic, normal inspection and normocephalic Respiratory Respiratory exam: Present normal respiratory exam; Absent respiratory distress and wheezes GI/Abdominal GI/Abdominal exam: Present soft; Absent distended, firm, rebound, rigid and tenderness exam: Present circumcision and urethral discharge (mild, dark beige and no longer grossly bloody ) Additional comments: catheter in good position and drianing light pink on slow CBI drip Neurological Exam Neurological exam: Present alert; Absent oriented X3 OBJ DATA Labs CBC & Chem 7: 07/11/20 05:15 07/09/20 05:25 Labs: Abnormal Lab Results 07/10/20 07/09/20 07/09/20 05:50 05:25 05:25 Hgb 13.3 L 12.9 L Total Bilirubin 1.7 H Direct Bilirubin 0.5 H GGT 82 H Meds: Medications Acetaminophen (Tylenol) 650 mg PO Q4-6HP PRN; Protocol PRN Reason: Per Pain Protocol Last Admin: 07/11/20 09:21 Dose: 650 mg Documented by: Hydrocodone Bitart/Acetaminophen ([place] 5/325mg) 1 tab PO Q4HP PRN; Protocol PRN Reason: Per Pain Protocol Albuterol/Ipratropium (Duoneb) 3 ml NEB Q4HP PRN PRN Reason: Shortness Of Breath Artificial Tears (Refresh Celluvisc) 1 each OU QIDP PRN PRN Reason: Dry Eye(s) Last Admin: 07/11/20 18:03 Dose: 1 each Documented by: Calcium/Vitamin D (Calcium W/Vit D3) 1,000 mg PO BID [facility] Last Admin: 07/11/20 10:41 Dose: 1,000 mg Documented by: Digoxin (Lanoxin) 250 mcg PO DAILY@1400 [facility] Last Admin: 07/11/20 15:14 Dose: 250 mcg Documented by: Docusate Sodium (Colace) 100 mg PO BID [facility] Last Admin: 07/11/20 10:41 Dose: 100 mg Documented by: Hydromorphone HCl (Dilaudid) 0.5 mg IV Q2HP PRN; Protocol PRN Reason: Per Pain Protocol Last Admin: 07/11/20 05:43 Dose: 0.5 mg Documented by: Ondansetron HCl (Zofran) 4 mg IV Q6HP PRN PRN Reason: Nausea And Vomiting Symbicort 160/4.5mcg (Inh) 2 dose INH BID [facility] Sodium Biphosphate/Sodium Phosphate (Fleets Adult) 1 dose [place] DAILYP PRN PRN Reason: Constipation Last Admin: 07/07/20 19:40 Dose: 1 dose Documented by: Sodium Chloride (Saline Flush) 10 ml IV Q8 [facility] Last Admin: 07/11/20 18:03 Dose: 10 ml Documented by: Tamsulosin HCl (Flomax) 0.4 mg PO BID [facility] Last Admin: 07/11/20 10:41 Dose: 0.4 mg Documented by: Tiotropium [place] (Spiriva) 2.5 mcg INH DAILY [facility] Vitamin D (Vitamin D3) 5,000 unit PO DAILY [facility] Last Admin: 07/11/20 10:40 Dose: 5,000 unit Documented by: A/P Narrative A/P Narrative: gross hematuria: -patient has not improved with conservative management -CBI is challenging to transport and he has required hand irrigation -bipolar TURP equipment should be here the latest and hopefully earlier -otherwise can consider adding thrombotic agents to the CBI irrigation fluid -will add B and O supp as suspect some of his catheter issues are bladder spasms -he has a h/o bladder cancer, a massive prostrate and a likley protruding median lobe on CT scan -plan will be resection Time Spent With Patient Time: Total time spent is greater than 50% in coordination of care (as documented) at patient's floor/unit and/or counseling patient: Total time spent with greater than 50% in coordination of care (as documented) at patient's floor/unit and/or counseling patient:: less than 15 minutes QUALITY Stroke Symptom Onset Unknown: No VTE Deep Vein Thrombosis/Pulmonary Embolism Present on Admission: No
[2020-07-11] MEDS: SYMBICORT INH SCH (19:32)
[2020-07-11] MEDS: OPIUM/BELLADONNA ALKALOIDS 60 MG SUPP.RECT PR PRN (20:22)
[2020-07-12] MEDS: 0.9 % SODIUM CHLORIDE 10 ML SYRINGE IV SCH ×3 (04:04→22:41)
--- NOTE | 2020-07-12 07:24 | Internal Med Progress Note ---
SUBJECTIVE Subjective Patient information: Note initiated : 07/12/20 at 7:23 am Service Date, if different from initiated Date: [] Patient: Suman Charles a 89 y/o M admitted on 07/08/20 for Urinary Retention. Chief Complaint: [] Interval history: History of present illness: Mr. Charles is a 89 year old M with a history of hematuria, atrial fibrillation, CAD, bladder cancer, and BPH who was sent to the ER by urologist Dr. Mueller after cystoscopy. Patient has been having hematuria for about 1 year which has been worsening recently. he also had acute urinary retention yesterday. He underwent both PVP and then urgent TURP for bleeding by urologist Dr. Cruz. Yesterday patient went to see Dr. Mueller who found him to have urinary retention and pass larger clots when urinating. Cystoscopy was performed yesterday by Dr. Mueller, showing a very enlarged prostate with a large median lobe. I was called to see and admit this patient after the cystoscopy because of gross hematuria and need of CBI. 07/08 Pt feels fine. Does not have complaits. Denies fever or n/v. Vital signs are stable and acceptable Hb 12.7 Creatinine 1.0 07/09 No new complaints overnight events. CBI in place. Red Aravind-Aid colored fluid in [place]pard bag. 07/10 States poor sleep because his is in the hospital over [place]. Otherwise no new complaints overnight events. 07/11 Patient complained of crampy abdominal pain. Bladder distention discomfort. Otherwise no other complaints. 07/12 Patient has some abdominal discomfort but no change. No new complaints. Awaiting surgical intervention. Review of Systems: denies headache/fever/chills/nausea/vomiting/chest pain/cough/dyspnea/diarrhea. Otherwise see above. Constitutional Vitals: Vital Signs Temp Pulse Resp BP Pulse Ox 98.9 F 78 16 107/61 94 07/12/20 04:00 07/12/20 04:00 07/12/20 04:00 07/12/20 04:00 07/12/20 04:00 Period Temp Pulse Resp BP Sys/Rush Pulse Ox Last 24 Hr 97.3 F-98.9 F 75-78 16-24 107-149/60-78 93-97 Intake and Output 1007/12/20 07/12/20 21:59 05:59 13:59 Intake Total 62821 3500 Output Total 30954 3400 Balance -1725 100 Weight 94.393 kg Intake & Output: Intake & Output 07/11/20 07/12/20 07/12/20 21:59 05:59 13:59 Intake Total 99764 3500 Output Total 69367 3400 Balance -1725 100 Weight 94.393 kg Intake: Oral 600 500 CBI Fluid 32591 3000 Output: CBI Fluid 35250 3400 Other: Urine Appearance Clear Clear 3-way Urethral Clear Clear Hematuria Urine Color [place] 3-way Urethral [place] Urine Odor Normal 3-way Urethral Normal Net CBI 350 400 Exam: General: Alert, Awake, No acute Distress Eyes/N/T: EOMI, Head/Neck: neck supple, CV: RRR, 2/6 SM Pulm: Clear b/l, no wheezing/rhonchi/rales Abd: soft, mild lower abd TTP over bladder, +BS x4 Ext: no clubbing/cyanosis/edema Neuro: Alert, no focal deficits, moves all extremities, Skin: warm/dry OBJ DATA Labs CBC & Chem 7: 07/12/20 05:27 07/09/20 05:25 Labs: Abnormal Lab Results 07/10/20 07/09/20 05:50 05:25 Hgb 13.3 L Total Bilirubin 1.7 H Direct Bilirubin 0.5 H GGT 82 H Meds: Medications Acetaminophen (Tylenol) 650 mg PO Q4-6HP PRN; Protocol PRN Reason: Per Pain Protocol Last Admin: 07/11/20 09:21 Dose: 650 mg Documented by: Hydrocodone Bitart/Acetaminophen ([place] 5/325mg) 1 tab PO Q4HP PRN; Protocol PRN Reason: Per Pain Protocol Albuterol/Ipratropium (Duoneb) 3 ml NEB Q4HP PRN PRN Reason: Shortness Of Breath Artificial Tears (Refresh Celluvisc) 1 each OU QIDP PRN PRN Reason: Dry Eye(s) Last Admin: 07/11/20 19:30 Dose: 1 each Documented by: Belladonna Alkaloids/Opium (B & O) 60 mg [place] Q6HP PRN PRN Reason: BLADDER SPASMS Last Admin: 07/11/20 20:22 Dose: 60 mg Documented by: Calcium/Vitamin D (Calcium W/Vit D3) 1,000 mg PO BID [facility] Last Admin: 07/11/20 20:22 Dose: 1,000 mg Documented by: Digoxin (Lanoxin) 250 mcg PO DAILY@1400 [facility] Last Admin: 07/11/20 15:14 Dose: 250 mcg Documented by: Docusate Sodium (Colace) 100 mg PO BID [facility] Last Admin: 07/11/20 20:22 Dose: 100 mg Documented by: Hydromorphone HCl (Dilaudid) 0.5 mg IV Q2HP PRN; Protocol PRN Reason: Per Pain Protocol Last Admin: 07/11/20 05:43 Dose: 0.5 mg Documented by: Ondansetron HCl (Zofran) 4 mg IV Q6HP PRN PRN Reason: Nausea And Vomiting Symbicort 160/4.5mcg (Inh) 2 dose INH BID [facility] Last Admin: 07/11/20 19:32 Dose: 2 dose Documented by: Sodium Biphosphate/Sodium Phosphate (Fleets Adult) 1 dose [place] DAILYP PRN PRN Reason: Constipation Last Admin: 07/07/20 19:40 Dose: 1 dose Documented by: Sodium Chloride (Saline Flush) 10 ml IV Q8 [facility] Last Admin: 07/12/20 04:04 Dose: 10 ml Documented by: Tamsulosin HCl (Flomax) 0.4 mg PO BID [facility] Last Admin: 07/11/20 20:22 Dose: 0.4 mg Documented by: Tiotropium [place] (Spiriva) 2.5 mcg INH DAILY [facility] Vitamin D (Vitamin D3) 5,000 unit PO DAILY [facility] Last Admin: 07/11/20 10:40 Dose: 5,000 unit Documented by: A/P Narrative A/P Narrative: A: *Hematuria, gross: *Hemorrhage of prostate: *Acute urinary retention: *Hx of bladder cancer: *BPH: *Anemia from acute blood loss: -H&H stable *Atrial fibrillation: Rate is controlled *CAD, s/p pacemaker placement: *[place] on cpap: P: -may Sign-Off d/w with Urolgy -management per Urology, currently with CBI, planned procedure for early next week. -monitor H&H -No anticoagulation at this moment, and ASA stopped. Patient understood the risks and benefits of anticoagulation. -cont digoxin -home cpap - -ppx: SCD CODE STATUS:DNR/DNI Time Spent With Patient Time: Total time spent is greater than 50% in coordination of care (as documented) at patient's floor/unit and/or counseling patient: QUALITY Stroke Symptom Onset Unknown: No VTE Deep Vein Thrombosis/Pulmonary Embolism Present on Admission: No
[2020-07-12 08:56] LABS: Hematocrit 41.6 % (41.0-55.0); Hemoglobin 13.4 g/dL (13.5-16.5)
[2020-07-12] MEDS: SYMBICORT INH SCH ×3 (08:57→23:00)
[2020-07-12] MEDS: TIOTROPIUM BROMIDE 18 MCG INHALANT INH SCH (08:57)
[2020-07-12] MEDS: DOCUSATE SODIUM 100 MG CAPSULE PO SCH ×2 (08:58→22:40)
[2020-07-12] MEDS: VITAMIN D3 5,000 UNIT CAPSULE PO SCH (08:58)
[2020-07-12] MEDS: TAMSULOSIN 0.4 MG CAPSULE PO SCH ×2 (08:58→22:40)
[2020-07-12] MEDS: CALCIUM W/VIT D3 500 MG TABLET PO SCH ×2 (08:58→22:40)
[2020-07-12] MEDS: CARBOXYMETHYLCELLULOSE SODIUM 1 EACH DROPER.GEL OU PRN ×2 (09:00→15:38)
[2020-07-12] MEDS: DIGOXIN 125 MCG TABLET PO SCH (13:48)
[2020-07-12] MEDS: ACETAMINOPHEN 325 MG TABLET PO PRN ×2 (13:51→22:40)
[2020-07-12] MEDS: FLEETS ADULT ENEMA PR PRN (14:40)
[2020-07-12] MEDS: OPIUM/BELLADONNA ALKALOIDS 60 MG SUPP.RECT PR PRN ×2 (16:54→23:00)
[2020-07-12 18:49] LABS: INR 1.1 (0.9-1.1); Prothrombin Time 14.7 sec (11.9-14.5)
[2020-07-13] MEDS: 0.9 % SODIUM CHLORIDE 10 ML SYRINGE IV SCH (04:20)
[2020-07-13] MEDS ORDERED: SCOPOLAMINE 1 PATCH PATCH TOPICAL PRN (05:00)
--- NOTE | 2020-07-13 07:46 | Internal Med Progress Note ---
SUBJECTIVE Subjective Patient information: Note initiated : 07/13/20 at 7:45 am Service Date, if different from initiated Date: [] Patient: Suman Charles a 89 y/o M admitted on 07/08/20 for Urinary Retention. Chief Complaint: [] Interval history: History of present illness: Mr. Charles is a 89 year old M with a history of hematuria, atrial fibrillation, CAD, bladder cancer, and BPH who was sent to the ER by urologist Dr. Mueller after cystoscopy. Patient has been having hematuria for about 1 year which has been worsening recently. he also had acute urinary retention yesterday. He underwent both PVP and then urgent TURP for bleeding by urologist Dr. Cruz. Yesterday patient went to see Dr. Mueller who found him to have urinary retention and pass larger clots when urinating. Cystoscopy was performed yesterday by Dr. Mueller, showing a very enlarged prostate with a large median lobe. I was called to see and admit this patient after the cystoscopy because of gross hematuria and need of CBI. 07/08 Pt feels fine. Does not have complaits. Denies fever or n/v. Vital signs are stable and acceptable Hb 12.7 Creatinine 1.0 07/09 No new complaints overnight events. CBI in place. Red Aravind-Aid colored fluid in [place] bag. 07/10 States poor sleep because his is in the hospital over [place]. Otherwise no new complaints overnight events. 07/11 Patient complained of crampy abdominal pain. Bladder distention discomfort. Otherwise no other complaints. 07/12 Patient has some abdominal discomfort but no change. No new complaints. Awaiting surgical intervention. 07/13 Patient in PACU, no intraoperative complications. Patient still quite groggy. Constitutional Vitals: Vital Signs Temp Pulse Resp BP Pulse Ox 99.3 F H 78 14 108/55 90 07/13/20 04:18 07/13/20 04:18 07/13/20 04:18 07/13/20 04:18 07/13/20 04:18 Period Temp Pulse Resp BP Sys/Rush Pulse Ox Last 24 Hr 97.5 F-99.3 F 75-78 14-18 98-120/53-65 90-94 Intake and Output 07/12/20 07/13/20 07/13/20 21:59 05:59 13:59 Intake Total 850 6400 Output Total 8500 30 Balance 850 30 Weight 94.801 kg Intake & Output: Intake & Output 07/12/20 07/13/20 07/13/20 21:59 05:59 13:59 Intake Total 850 6400 Output Total 8500 30 Balance 850 30 Weight 94.801 kg Intake: Oral 850 400 CBI Fluid 6000 Output: Stool 30 CBI Fluid 8500 Other: Urine Appearance Clear Urine Color Bright Yellow Urine Odor Normal Stool Size Large Small Stool Color Brown Brown Yellow Stool Consistency Soft Liquid Formed # Bowel Movements 1 Net CBI 900 Net Peritoneal UF 400 Exam: General: Alert, Awake, No acute Distress Eyes/N/T: EOMI, Head/Neck: neck supple, CV: RRR, 2/6 SM Pulm: Clear b/l, no wheezing/rhonchi/rales Abd: soft, +BS x4 Ext: no clubbing/cyanosis/edema Neuro: Alert, no focal deficits, moves all extremities, Skin: warm/dry OBJ DATA Labs CBC & Chem 7: 07/13/20 05:26 07/09/20 05:25 Labs: Abnormal Lab Results 07/12/20 07/12/20 17:21 05:27 Hgb 13.4 L PT 14.7 H Meds: Medications Acetaminophen (Tylenol) 650 mg PO Q4-6HP PRN; Protocol PRN Reason: Per Pain Protocol Last Admin: 07/12/20 22:40 Dose: 650 mg Documented by: Hydrocodone Bitart/Acetaminophen ([place] 5/325mg) 1 tab PO Q4HP PRN; Protocol PRN Reason: Per Pain Protocol Albuterol/Ipratropium (Duoneb) 3 ml NEB Q4HP PRN PRN Reason: Shortness Of Breath Artificial Tears (Refresh Celluvisc) 1 each OU QIDP PRN PRN Reason: Dry Eye(s) Last Admin: 07/12/20 15:38 Dose: 1 each Documented by: Belladonna Alkaloids/Opium (B & O) 60 mg [place] Q6HP PRN PRN Reason: BLADDER SPASMS Last Admin: 07/12/20 23:00 Dose: 60 mg Documented by: Calcium/Vitamin D (Calcium W/Vit D3) 1,000 mg PO BID [facility] Last Admin: 07/12/20 22:40 Dose: 1,000 mg Documented by: Digoxin (Lanoxin) 250 mcg PO DAILY@1400 [facility] Last Admin: 07/12/20 13:48 Dose: 250 mcg Documented by: Docusate Sodium (Colace) 100 mg PO BID [facility] Last Admin: 07/12/20 22:40 Dose: 100 mg Documented by: Hydromorphone HCl (Dilaudid) 0.5 mg IV Q2HP PRN; Protocol PRN Reason: Per Pain Protocol Last Admin: 07/11/20 05:43 Dose: 0.5 mg Documented by: Ondansetron HCl (Zofran) 4 mg IV Q6HP PRN PRN Reason: Nausea And Vomiting Symbicort 160/4.5mcg (Inh) 2 dose INH BID [facility] Last Admin: 07/12/20 23:00 Dose: Not Given Documented by: Scopolamine (Transderm-Scop) 1 patch TOPICAL PREOP PRN PRN Reason: Nausea And Vomiting Stop: 07/13/20 23:59 Sodium Biphosphate/Sodium Phosphate (Fleets Adult) 1 dose [place] DAILYP PRN PRN Reason: Constipation Last Admin: 07/12/20 14:40 Dose: 1 dose Documented by: Sodium Chloride (Saline Flush) 10 ml IV Q8 [facility] Last Admin: 07/13/20 04:20 Dose: 10 ml Documented by: Tamsulosin HCl (Flomax) 0.4 mg PO BID [facility] Last Admin: 07/12/20 22:40 Dose: 0.4 mg Documented by: Tiotropium [place] (Spiriva) 2.5 mcg INH DAILY [facility] Last Admin: 07/12/20 08:57 Dose: 2 puff Documented by: Vitamin D (Vitamin D3) 5,000 unit PO DAILY [facility] Last Admin: 07/12/20 08:58 Dose: 5,000 unit Documented by: A/P Assessment and plan (1) Hematuria: Status: Acute Qualifiers: Hematuria type: gross Qualified Code(s): R31.0 - Gross hematuria Narrative A/P Narrative: A: *Hematuria, gross: *Hemorrhage of prostate: *Acute urinary retention: *Hx of bladder cancer: *BPH: *Anemia from acute blood loss: -H&H stable *Atrial fibrillation: Rate is controlled *CAD, s/p pacemaker placement: *[place] on cpap: P: - -management per Urology, currently with CBI, planned procedure for early next week. -monitor H&H -No anticoagulation at this moment, and ASA stopped. Patient understood the risks and benefits of anticoagulation. -cont digoxin -home cpap - -ppx: SCD CODE STATUS:DNR/DNI Time Spent With Patient Time: Total time spent is greater than 50% in coordination of care (as documented) at patient's floor/unit and/or counseling patient: QUALITY Stroke Symptom Onset Unknown: No VTE Deep Vein Thrombosis/Pulmonary Embolism Present on Admission: No
[2020-07-13 07:47] LABS: Hematocrit 40.4 % (41.0-55.0); Hemoglobin 13.2 g/dL (13.5-16.5)
[2020-07-13] MEDS ORDERED: PIPERACILLIN SODIUM/TAZOBACTAM 3.375 GM in DEXTROSE 5% IN WATER 50 ML IV ONE (08:02)
--- NOTE | 2020-07-13 08:07 | Internal Med Progress Note ---
SUBJECTIVE Subjective Patient information: Note initiated : 07/13/20 at 8:03 am Service Date, if different from initiated Date: [] Patient: Suman Charles 89 y/o M admitted on 07/08/20 for gross hematuria. PLEASE NOTE THIS NOTE IS FOR 07/12/2020 THERE WERE COMPUTER ISSUES AND ORIGINAL NOTE HAD TO BE DELETED. Patient improved with B and O supp last night and sense catheter occlusion improved. has not had any supp since and did not know he could keep asking for them. Remain clear on slow drip but urine turns dwyer colore dwith movement. Patient conference had to go over plan and options,. Constitutional Vitals: Vital Signs Temp Pulse Resp BP Pulse Ox 99.3 F H 78 14 108/55 90 07/13/20 04:18 07/13/20 04:18 07/13/20 04:18 07/13/20 04:18 07/13/20 04:18 Period Temp Pulse Resp BP Sys/Rush Pulse Ox Last 24 Hr 97.5 F-99.3 F 75-78 14-18 107-120/55-65 90-94 Intake and Output 07/12/20 07/13/20 07/13/20 21:59 05:59 13:59 Intake Total 850 6400 Output Total 8500 30 Balance 850 -2100 -30 Weight 209 lb Intake & Output: Intake & Output 07/12/20 07/13/20 07/13/20 21:59 05:59 13:59 Intake Total 850 6400 Output Total 8500 30 Balance 850 -2100 -30 Weight 209 lb Intake: Oral 850 400 CBI Fluid 6000 Output: Stool 30 CBI Fluid 8500 Other: Urine Appearance Clear Urine Color Bright Yellow Urine Odor Normal Stool Size Large Small Stool Color Brown Brown Yellow Stool Consistency Soft Liquid Formed # Bowel Movements 1 Net CBI 900 Net Peritoneal UF 400 General appearance: cooperative; no disheveled and no no acute distress Head Head exam: Present atraumatic, normal inspection and normocephalic Respiratory Respiratory exam: Absent accessory muscle use, stridor and wheezes Cardiovascular Cardiovascular exam: Present normal rate and rhythm; Absent bradycardia and tachycardia GI/Abdominal GI/Abdominal exam: Present soft and rebound; Absent distended, firm, guarding, rigid and tenderness exam: Present circumcision, normal inspection and urethral discharge (improved and scant ) Additional comments: monge position checked. was clear on minimal CBI but with manipulation of monge immediate dwyer colored urine despite hand irrigation. no clots with hand irrigation Neurological Exam Neurological exam: Present alert and oriented X3 Psychiatric Psychiatric exam: Present normal affect and normal mood; Absent agitated and anxious OBJ DATA Labs CBC & Chem 7: 07/13/20 05:26 07/09/20 05:25 Labs: Abnormal Lab Results 07/13/20 07/12/20 07/12/20 05:26 17:21 05:27 Hgb 13.2 L 13.4 L Hct 40.4 L PT 14.7 H Meds: Medications Acetaminophen (Tylenol) 650 mg PO Q4-6HP PRN; Protocol PRN Reason: Per Pain Protocol Last Admin: 07/12/20 22:40 Dose: 650 mg Documented by: Hydrocodone Bitart/Acetaminophen ([place] 5/325mg) 1 tab PO Q4HP PRN; Protocol PRN Reason: Per Pain Protocol Albuterol/Ipratropium (Duoneb) 3 ml NEB Q4HP PRN PRN Reason: Shortness Of Breath Artificial Tears (Refresh Celluvisc) 1 each OU QIDP PRN PRN Reason: Dry Eye(s) Last Admin: 07/12/20 15:38 Dose: 1 each Documented by: Belladonna Alkaloids/Opium (B & O) 60 mg [place] Q6HP PRN PRN Reason: BLADDER SPASMS Last Admin: 07/12/20 23:00 Dose: 60 mg Documented by: Calcium/Vitamin D (Calcium W/Vit D3) 1,000 mg PO BID [facility] Last Admin: 07/12/20 22:40 Dose: 1,000 mg Documented by: Digoxin (Lanoxin) 250 mcg PO DAILY@1400 [facility] Last Admin: 07/12/20 13:48 Dose: 250 mcg Documented by: Docusate Sodium (Colace) 100 mg PO BID [facility] Last Admin: 07/12/20 22:40 Dose: 100 mg Documented by: Hydromorphone HCl (Dilaudid) 0.5 mg IV Q2HP PRN; Protocol PRN Reason: Per Pain Protocol Last Admin: 07/11/20 05:43 Dose: 0.5 mg Documented by: Ondansetron HCl (Zofran) 4 mg IV Q6HP PRN PRN Reason: Nausea And Vomiting Symbicort 160/4.5mcg (Inh) 2 dose INH BID [facility] Last Admin: 07/12/20 23:00 Dose: Not Given Documented by: Scopolamine (Transderm-Scop) 1 patch TOPICAL PREOP PRN PRN Reason: Nausea And Vomiting Stop: 07/13/20 23:59 Sodium Biphosphate/Sodium Phosphate (Fleets Adult) 1 dose [place] DAILYP PRN PRN Reason: Constipation Last Admin: 07/12/20 14:40 Dose: 1 dose Documented by: Sodium Chloride (Saline Flush) 10 ml IV Q8 [facility] Last Admin: 07/13/20 04:20 Dose: 10 ml Documented by: Tamsulosin HCl (Flomax) 0.4 mg PO BID [facility] Last Admin: 07/12/20 22:40 Dose: 0.4 mg Documented by: Tiotropium [place] (Spiriva) 2.5 mcg INH DAILY [facility] Last Admin: 07/12/20 08:57 Dose: 2 puff Documented by: Vitamin D (Vitamin D3) 5,000 unit PO DAILY [facility] Last Admin: 07/12/20 08:58 Dose: 5,000 unit Documented by: A/P Assessment and plan (1) Hematuria: Status: Acute Qualifiers: Hematuria type: gross Qualified Code(s): R31.0 - Gross hematuria (2) History of bladder cancer: Status: Acute (3) Hemorrhage of prostate: Status: Acute Narrative A/P Narrative: gross hematuria with massive prostate and h/o bladder cancer -he is bleedign markiedly less now that off aspirin and improved to some degree with CBI but persistent bleeding is present -three options: 1) likely would tolerate transfer as bleeding is less and less change catheter issues with transport as long as CBI kept a high rate 2) can add hemostatic agent to CBI. prefer not to use Alum or amicar given his age but could consider silver 3) surgery with bipolar TURP as the machine arrived today and just need staff inservice patient is amenable to all the above options. he is a surgical candidate. if he wasnt, would proceed wit hemostatic agent to CBI. Later that day 07/12/2020 got confirmation the OR staff would have their i nservice and surgery planned for 0730 07/13/2020. surgery risks, benefits gone over in depth with the patient and informed consent obtained and all questions answered. Labs will be drawn as well as CXR and EKG. Time Spent With Patient Time: Total time spent is greater than 50% in coordination of care (as documented) at patient's floor/unit and/or counseling patient: QUALITY Stroke Symptom Onset Unknown: No VTE Deep Vein Thrombosis/Pulmonary Embolism Present on Admission: No
[2020-07-13] MEDS ORDERED: fentaNYL 100 MCG/2 ML VIAL IV ONE (08:10)
[2020-07-13] MEDS ORDERED: FUROSEMIDE 20 MG/2 ML VIAL IV ONE (08:10)
[2020-07-13] MEDS ORDERED: ePHEDrine 50 MG/ML AMPUL IV ONE (08:10)
[2020-07-13] MEDS ORDERED: ONDANSETRON 4 MG/2 ML VIAL ONE (08:10)
[2020-07-13] MEDS ORDERED: KETAMINE HCL 50 MG/ML ML ONE (08:10)
[2020-07-13] MEDS ORDERED: PROPOFOL 200 MG/20 ML VIAL IV ONE (08:10)
[2020-07-13] MEDS ORDERED: LIDOCAINE HCL/PF 100 MG/5 ML SYRINGE IV ONE (08:10)
[2020-07-13] MEDS ORDERED: PROMETHAZINE 25 MG/ML VIAL IV PRN (09:18)
[2020-07-13] MEDS ORDERED: diphenhydrAMINE 50 MG/ML VIAL IV PRN (09:18)
[2020-07-13] MEDS ORDERED: ONDANSETRON 4 MG/2 ML VIAL IV PRN ×3 (09:18→11:54)
[2020-07-13] MEDS ORDERED: ACETAMINOPHEN 1,000 MG/100 ML BOTTLE IV ONE (09:18)
[2020-07-13] MEDS ORDERED: NALOXONE HCL 0.4 MG/ML VIAL IV PRN (09:18)
[2020-07-13] MEDS ORDERED: IPRATROPIUM/ALBUTEROL 3 ML AMPUL.NEB NEB PRN ×2 (09:18→11:54)
[2020-07-13] MEDS ORDERED: LACTATED RINGERS 250 ML IV PRN (09:18)
[2020-07-13] MEDS ORDERED: LACTATED RINGERS 1,000 ML IV SCH (09:30)
[2020-07-13] MEDS: OPIUM/BELLADONNA ALKALOIDS 60 MG SUPP.RECT PR PRN (09:56)
--- NOTE | 2020-07-13 10:54 | Brief Operative Note ---
Brief Operative Note Date of procedure: 07/13/20 Pre-op diagnosis: gross hematuria Post-op diagnosis: same (undermined bladder neck and possible sphincter injury on the left from previous surgery) Procedure: bipolar transurethral resection prostate Grafts/Implants: No Anesthesia: GETA Findings: from previous surgery: undermined bladder neck, possible sphincter injury on the left, marked residual lateral lobe copating tissue, no median lobe. unable to fully evaluate bladder for lesions given bleeding from undermined bladder neck and prostate Complications: none Surgeon: Omari Mueller Estimated blood loss (cc): 25 Specimens Removed/Pathology: other (prostate resection chips) Condition: stable Disposition: PACU
[2020-07-13] MEDS ORDERED: OPIUM/BELLADONNA ALKALOIDS 60 MG SUPP.RECT PR PRN ×2 (10:58→18:51)
[2020-07-13] MEDS ORDERED: HYDROmorphone 1 MG/ML SYRINGE IV PRN ×2 (10:58→12:56)
[2020-07-13] MEDS: fentaNYL 100 MCG/2 ML VIAL IV PRN ×5 (11:01→11:19)
[2020-07-13] MEDS ORDERED: HYDROcodone/APAP 5/325MG TABLET PO PRN (11:54)
[2020-07-13] MEDS ORDERED: FLEETS ADULT ENEMA PR PRN (11:54)
[2020-07-13] MEDS ORDERED: ACETAMINOPHEN 325 MG TABLET PO PRN (11:54)
[2020-07-13] MEDS ORDERED: CARBOXYMETHYLCELLULOSE SODIUM 1 EACH DROPER.GEL OU PRN (11:54)
[2020-07-13] MEDS: DOCUSATE SODIUM 100 MG CAPSULE PO SCH ×2 (12:39→20:02)
[2020-07-13] MEDS: TAMSULOSIN 0.4 MG CAPSULE PO SCH (12:39)
[2020-07-13] MEDS: SYMBICORT INH SCH ×2 (12:39→20:02)
[2020-07-13] MEDS: CALCIUM W/VIT D3 500 MG TABLET PO SCH ×2 (12:39→20:02)
[2020-07-13] MEDS: TIOTROPIUM BROMIDE 18 MCG INHALANT INH SCH (12:40)
[2020-07-13] MEDS: VITAMIN D3 5,000 UNIT CAPSULE PO SCH (12:41)
[2020-07-13] MEDS ORDERED: HYDROmorphone 0.5 MG/0.5 ML SYRINGE ONE (13:10)
[2020-07-13] MEDS ORDERED: PHENAZOPYRIDINE 200 MG TABLET PO ONE (13:16)
[2020-07-13] MEDS ORDERED: 0.9 % SODIUM CHLORIDE 10 ML SYRINGE IV SCH (14:00)
[2020-07-13] MEDS ORDERED: ACETAMINOPHEN W/CODEINE #3 1 TABLET PO PRN (15:18)
[2020-07-13] MEDS: DIGOXIN 125 MCG TABLET PO SCH (16:04)
[2020-07-13] MEDS: PIPERACILLIN SODIUM/TAZOBACTAM 3.375 GM in DEXTROSE 5% IN WATER 50 ML IV SCH ×2 (16:05→22:08)
--- NOTE | 2020-07-13 16:31 | Internal Med Progress Note ---
SUBJECTIVE Subjective Patient information: Note initiated : 07/13/20 at 4:24 pm Service Date, if different from initiated Date: [] Patient: Suman Charles 89 y/o M admitted on 07/08/20 gross hematuria and bleeding from his prostate possible bladder. He underwent conservative management with continuous bladder irrigation and holding his aspirin. While he did improve his bleeding did not stop. He was taken to the operating room today for a bipolar transurethral resection of the prostate possible resection of bladder lesion. In the OR we found a scarred undermined bladder neck that was bleeding and significant residual lateral lobe coaptation but no significant median lobe. Extensive transurethral resection was done and extensive cautery. Post procedure he was restarted on CBI and his catheter was put on traction. When he was being transferred from the postop to the floor his catheter got overtly manipulated pulling the balloon into the prostate and the patient was in significant distress. The balloon was taken down to relieve his pain but we were not able to manipulate the catheter back into his bladder given his undermined bladder neck from his previous surgery. In the OR we had to use a mandrin in order to place a three-way catheter. His catheter was then removed. He did have significant pain still and there was a delay in getting him his preop and reordered pain medication due to an issue with how his allergies were entered. He has now voided twice and his urine is light Aravind-Aid colored. His PVR was 90 cc. His pain is improving. He has been given Dilaudid, Tylenol 3 and Pyridium. Needs to be monitored overnight as he has significant risk for retention and bleeding given his catheter was taken out early due to it being dislodged during transport. Chief Complaint: [] Constitutional Vitals: Vital Signs Temp Pulse Resp BP Pulse Ox 97.6 F 75 17 110/93 92 07/13/20 11:40 07/13/20 11:40 07/13/20 11:40 07/13/20 11:40 07/13/20 11:40 Period Temp Pulse Resp BP Sys/Rush Pulse Ox Last 24 Hr 96.4 F-99.3 F 71-80 12-18 102-146/55-93 90-97 Intake and Output 07/13/20 07/13/20 07/13/20 05:59 13:59 21:59 Intake Total 6400 900 350 Output Total 8500 30 150 Balance -2100 870 200 Intake & Output: Intake & Output 07/13/20 07/13/20 07/13/20 05:59 13:59 21:59 Intake Total 6400 900 350 Output Total 8500 30 150 Balance -2100 870 200 Intake: IV 100 Oral 400 350 IV - Manual Only 800 CBI Fluid 6000 Output: Void Amount 150 Stool 30 CBI Fluid 8500 Other: Urine Appearance Clear Clear Hematuria 3-way Urethral Hematuria Urine Color Bright Yellow Pale Dark Yellow Blood Tinged 3-way Urethral [place] Urine Odor Normal Normal Normal Stool Size Small Smear Stool Color Brown Brown Yellow Stool Consistency Liquid # Bowel Movements 1 Net CBI 900 General appearance: cooperative and mild distress; no disheveled Head Head exam: Present atraumatic, normal inspection and normocephalic Eye Eye exam: Present normal appearance; Absent conjunctival injection and scleral icterus Respiratory Respiratory exam: Absent respiratory distress, stridor and wheezes Cardiovascular Cardiovascular exam: Present normal rate and rhythm; Absent bradycardia and tachycardia GI/Abdominal GI/Abdominal exam: Present soft; Absent guarding, rebound, rigid and tenderness exam: Present circumcision; Absent urethral discharge (Even with catheter removal, no blood at meatus) Neurological Exam Neurological exam: Present alert and oriented X3 OBJ DATA Labs CBC & Chem 7: 07/13/20 05:26 07/09/20 05:25 Labs: Abnormal Lab Results 07/13/20 07/12/20 07/12/20 05:26 17:21 05:27 Hgb 13.2 L 13.4 L Hct 40.4 L PT 14.7 H Meds: Medications Acetaminophen (Tylenol) 650 mg PO Q4-6HP PRN; Protocol PRN Reason: Per Pain Protocol Last Admin: 07/13/20 16:03 Dose: 650 mg Documented by: Acetaminophen/Codeine Phosphate (Tylenol #3) 1 tab PO Q4HP PRN; Protocol PRN Reason: Per Pain Protocol Hydrocodone Bitart/Acetaminophen ([place] 5/325mg) 1 tab PO Q4HP PRN; Protocol PRN Reason: Per Pain Protocol Albuterol/Ipratropium (Duoneb) 3 ml NEB Q4HP PRN PRN Reason: Shortness Of Breath Artificial Tears (Refresh Celluvisc) 1 each OU QIDP PRN PRN Reason: Dry Eye(s) Calcium/Vitamin D (Calcium W/Vit D3) 1,000 mg PO BID [facility] Digoxin (Lanoxin) 250 mcg PO DAILY@1400 RAMIN Last Admin: 07/13/20 16:04 Dose: 250 mcg Documented by: Docusate Sodium (Colace) 100 mg PO BID [facility] Finasteride (Proscar) 5 mg PO DAILY [facility] Hydromorphone HCl (Dilaudid) 1 mg IV Q2HP PRN; Protocol PRN Reason: Per Pain Protocol Piperacillin Sod/Tazobactam (Sod 3.375 gm/ Dextrose) 50 mls @ 100 mls/hr IV Q8H [facility]; Protocol Last Admin: 07/13/20 16:05 Dose: 100 mls/hr Documented by: Ondansetron HCl (Zofran) 4 mg IV Q6HP PRN; Protocol PRN Reason: Nausea And Vomiting Symbicort 160/4.5mcg (Inh *Pt Own Med) 2 dose INH BID [facility] Sodium Biphosphate/Sodium Phosphate (Fleets Adult) 1 dose [place] DAILYP PRN PRN Reason: Constipation Tiotropium [place] (Spiriva) 36 mcg INH DAILY [facility] Vitamin D (Vitamin D3) 5,000 unit PO DAILY RAMIN A/P Narrative A/P Narrative: Gross hematuria now status post bipolar transurethral resection of the prostate with catheter issues when being transported from recovery to the floor necessitating removal of the catheter. Given his significantly undermined bladder neck from his previous surgery we are currently leaving a three-way catheter out as we would need the mandrin sound to replace or we can replace it daily. He is voiding and his PVR is currently less than 100 cc. Given he does not have a catheter in he is risk of bleeding. But his urine is currently light Aravind-Aid which is appropriate. We would like to avoid the manipulation of her freshly cauterized prostatic bed with catheter replacement so we will monitor him overnight. If he is voiding well and has minimal hematuria he will be discharged tomorrow. He does have some pain control issues due to a delay in his postoperative pain medication due to some issues with his allergies. He currently is improved with Dilaudid and Tylenol No. 3 and Pyridium. We will continue the Band O suppositories. He is on Zosyn for the short-term, if he does well we will consider sending him home on Keflex. Time Spent With Patient Time: Total time spent is greater than 50% in coordination of care (as documented) at patient's floor/unit and/or counseling patient: QUALITY Stroke Symptom Onset Unknown: No VTE Deep Vein Thrombosis/Pulmonary Embolism Present on Admission: No
--- NOTE | 2020-07-13 16:36 | Operative Note ---
Operative Note Operative Note: Date of procedure: 07/13/20 Pre-op diagnosis: gross hematuria Post-op diagnosis: same (undermined bladder neck and possible sphincter injury on the left from previous surgery) Procedure: bipolar transurethral resection prostate Grafts/Implants: No Anesthesia: GETA Findings: from previous surgery: undermined bladder neck, possible sphincter injury on the left, marked residual lateral lobe copating tissue, no median lobe. unable to fully evaluate bladder for lesions given bleeding from undermined bladder neck and prostate Complications: none Surgeon: Omari Mueller Estimated blood loss (cc): 25 Specimens Removed/Pathology: other (prostate resection chips) Condition: stable Disposition: PACU Informed consent was obtained and preoperative antibiotics were given. Patient was taken to the operative suite and placed on the table in the supine position. Adequate anesthesia was initiated. Patient was then placed in the dorsal lithotomy position. His catheter was removed. And he was prepped and draped in the usual sterile fashion. We began the procedure with the resectoscope with a visual obturator which was guided into the urethra prostate and bladder. The prostate was seen to have significant residual lateral lobe coaptation and tissue. When we reached the bladder neck there was evidence of significant previous surgery in the bladder neck was high riding and significantly undermined. The bladder neck was friable and bleeding and likely the source of his bleeding we suspect. We were able to enter into the bladder and there was no median lobe visible. On the right side of his external sphincter there was a pale area suggestive of possible laser damage but such is unclear. He has significant residual tissue distally. Given his bleeding we were not able to thoroughly assess the urothelium for any bladder lesions given his history of bladder cancer. Resection loop was installed and continuous irrigation was started. We started with thorough cauterization of the bladder neck and then our attention was turned to identification of the verumontanum and slow tedious resection of his lateral lobe tissue. He had significant prostatic blood vessels and extensive cautery was used throughout the resection. Once each lateral lobe was resected sufficiently to create a wide prostatic fossa and the bladder neck was thoroughly fulgurated the bladder was drained and refilled numerous times to assure hemostasis and there was minimal to no bleeding. All the prostatic chips were removed and sent off for specimen. Given the size of his prostate and the extensive prostatic vessels greater than 50% additional procedural time was required due to the degree of difficulty of t he procedure and his large gland. We attempted to place a three-way catheter but given his undermined bladder neck from his previous surgery, we had to use a sales performance manager into place such. With a catheter in place urine was draining nearly clear. 4 x 4 was used to tie around the catheter and placed the catheter on traction after 60 cc was put in the balloon. Slow drip CBI was started. He was sent to recovery room in excellent condition. Plan to remove catheter traction in 1 to 2 hours. Patient tolerated the procedure well.
[2020-07-13] MEDS: OPIUM/BELLADONNA ALKALOIDS 60 MG SUPP.RECT PR SCH (20:02)
[2020-07-14] MEDS: OPIUM/BELLADONNA ALKALOIDS 60 MG SUPP.RECT PR SCH ×2 (03:13→12:34)
[2020-07-14] MEDS: PIPERACILLIN SODIUM/TAZOBACTAM 3.375 GM in DEXTROSE 5% IN WATER 50 ML IV SCH ×2 (05:46→13:46)
[2020-07-14 06:52] LABS: Basophils # (Auto) 0.05 K/mcL (0.00-0.20); Basophils % (Auto) 0.6 % (0.0-2.0); Eosinophils # (Auto) 0.38 K/mcL (0.00-0.70); Eosinophils % (Auto) 4.9 % (0.0-7.0); Hematocrit 38.6 % (41.0-55.0); Hemoglobin 12.3 g/dL (13.5-16.5); Lymphocytes # (Auto) 1.45 K/mcL (1.50-4.80); Lymphocytes % (Auto) 18.7 % (15.0-49.0); Mean Cell Volume 92.1 fL (80.0-100.0); Mean Corpuscular HGB Conc 31.9 g/dL (31.0-36.0); Mean Platelet Volume 10.6 fL (7.4-10.4); Monocytes # (Auto) 0.78 K/mcL (0.10-0.90); Monocytes % (Auto) 10.1 % (1.0-12.0); Neutrophils % (Auto) 65.7 % (38.0-78.0); Platelet Count 174 K/mcL (140-440); RBC 4.19 M/mcL (4.50-5.90); Red Cell Distribution Width 14.1 % (11.5-14.5); WBC 7.8 K/mcL (4.5-11.0)
[2020-07-14 07:20] LABS: ALT/SGPT 20 U/L (<40); AST/SGOT 26 U/L (<40); Albumin 3.4 gm/dL (3.2-5.2); Albumin/Globulin Ratio 1.1 (1.0-2.3); Alkaline Phosphatase 91 U/L (39-117); Bilirubin,Total 0.9 mg/dL (0.1-1.0); Blood Urea Nitrogen 17 mg/dL (8-23); Calcium 9.4 mg/dL (8.6-10.4); Carbon Dioxide 27 mmol/L (22-30); Chloride 101 mmol/L (96-108); Globulin 3.2 gm/dL (2.2-3.7); Glomerular Filtration Rate 54; Glucose 102 mg/dL (70-105)
[2020-07-14] MEDS ORDERED: TIOTROPIUM BROMIDE 18 MCG INHALANT INH SCH (09:00)
[2020-07-14] MEDS ORDERED: VITAMIN D3 5,000 UNIT CAPSULE PO SCH (09:00)
[2020-07-14] MEDS ORDERED: FINASTERIDE 5 MG TABLET PO SCH (09:00)
[2020-07-14] MEDS: CALCIUM W/VIT D3 500 MG TABLET PO SCH (09:29)
[2020-07-14] MEDS: SYMBICORT INH SCH (09:30)
[2020-07-14] MEDS: DOCUSATE SODIUM 100 MG CAPSULE PO SCH (09:30)
--- NOTE | 2020-07-14 13:42 | Internal Med Progress Note ---
SUBJECTIVE Subjective Patient information: Note initiated : 07/14/20 at 1:39 pm Service Date, if different from initiated Date: [] Patient: Suman Charles 89 y/o M admitted on 07/08/20 for gross hematuria and is POD#1 TURP. doing very will. urine very clear this am and orange form pyridium. no pain. voiding freely and PVR under 100. no fevers, no chills, no nausea or emesis Chief Complaint: [] Constitutional Vitals: Vital Signs Temp Pulse Resp BP Pulse Ox 98.8 F 75 20 116/67 91 07/14/20 12:00 07/14/20 12:00 07/14/20 12:00 07/14/20 12:00 07/14/20 12:00 Period Temp Pulse Resp BP Sys/Rush Pulse Ox Last 24 Hr 97.4 F-98.8 F 75-77 12-20 97-145/53-75 88-95 Intake and Output 07/13/20 07/14/20 07/14/20 21:59 05:59 13:59 Intake Total 840 850 50 Output Total 150 600 225 Balance 690 250 -175 Weight 195 lb 1.6 oz Intake & Output: Intake & Output 07/13/20 07/14/20 07/14/20 21:59 05:59 13:59 Intake Total 840 850 50 Output Total 150 600 225 Balance 690 250 -175 Weight 195 lb 1.6 oz Intake: IV 50 50 50 Zosyn 3.375 gm In Dextrose 5% 50 50 50 in Water 50 ml @ 100 mls/hr IV Q8H [facility] Rx#:[id number] Oral 790 800 Output: Void Amount 150 600 225 Other: Meal Dinner Percent of Meal Consumed 95% Feeding Ability Independent Urine Appearance Hematuria Cloudy Cloudy 3-way Urethral [place] Urine Color Dark Yellow Dark Red Dark Red Blood Tinged 3-way Urethral [place]raw [place] Urine Odor Normal Normal Stool Size Smear Smear Stool Color Brown Brown Stool Consistency Liquid # Bowel Movements 1 General appearance: cooperative and no acute distress Head Head exam: Present atraumatic, normal inspection and normocephalic Respiratory Respiratory exam: Absent respiratory distress, stridor and wheezes Cardiovascular Cardiovascular exam: Present normal rate and rhythm GI/Abdominal GI/Abdominal exam: Present soft; Absent distended, firm, guarding, rebound and tenderness OBJ DATA Labs CBC & Chem 7: 07/14/20 05:47 07/14/20 05:47 Labs: Abnormal Lab Results 07/14/20 07/13/20 07/12/20 05:47 05:26 17:21 RBC 4.19 L Hgb 12.3 L 13.2 L Hct 38.6 L 40.4 L MPV 10.6 H Lymph # (Auto) 1.45 L PT 14.7 H 07/12/20 05:27 RBC Hgb 13.4 L Hct MPV Lymph # (Auto) PT Meds: Medications Acetaminophen (Tylenol) 650 mg PO Q4-6HP PRN; Protocol PRN Reason: Per Pain Protocol Last Admin: 07/13/20 16:03 Dose: 650 mg Documented by: Acetaminophen/Codeine Phosphate (Tylenol #3) 1 tab PO Q4HP PRN; Protocol PRN Reason: Per Pain Protocol Hydrocodone Bitart/Acetaminophen ([place] 5/325mg) 1 tab PO Q4HP PRN; Protocol PRN Reason: Per Pain Protocol Albuterol/Ipratropium (Duoneb) 3 ml NEB Q4HP PRN PRN Reason: Shortness Of Breath Artificial Tears (Refresh Celluvisc) 1 each OU QIDP PRN PRN Reason: Dry Eye(s) [place] Alkaloids/Opium (B & O) 60 mg DE Q8H [facility] Last Admin: 07/14/20 12:34 Dose: 60 mg Documented by: Calcium/Vitamin D (Calcium W/Vit D3) 1,000 mg PO BID [facility] Last Admin: 07/14/20 09:29 Dose: 1,000 mg Documented by: Digoxin (Lanoxin) 250 mcg PO DAILY@1400 [facility] Last Admin: 07/13/20 16:04 Dose: 250 mcg Documented by: Docusate Sodium (Colace) 100 mg PO BID [facility] Last Admin: 07/14/20 09:30 Dose: 100 mg Documented by: Finasteride (Proscar) 5 mg PO DAILY [facility] Last Admin: 07/14/20 09:29 Dose: 5 mg Documented by: Hydromorphone HCl (Dilaudid) 1 mg IV Q2HP PRN; Protocol PRN Reason: Per Pain Protocol Piperacillin Sod/Tazobactam (Sod 3.375 gm/ Dextrose) 50 mls @ 100 mls/hr IV Q8H [facility]; Protocol Last Infusion: 07/14/20 09:35 Dose: Infused Documented by: Ondansetron HCl (Zofran) 4 mg IV Q6HP PRN; Protocol PRN Reason: Nausea And Vomiting Symbicort 160/4.5mcg (Inh *Pt Own Med) 2 dose INH BID [facility] Last Admin: 07/14/20 09:30 Dose: 2 dose Documented by: Sodium Biphosphate/Sodium Phosphate (Fleets Adult) 1 dose [place] DAILYP PRN PRN Reason: Constipation Tiotropium [place] (Spiriva) 36 mcg INH DAILY [facility] Last Admin: 07/14/20 09:32 Dose: 1 dose Documented by: Vitamin D (Vitamin D3) 5,000 unit PO DAILY [facility] Last Admin: 07/14/20 09:30 Dose: 5,000 unit Documented by: A/P Assessment and plan (1) Hematuria: Status: Acute Qualifiers: Hematuria type: gross Qualified Code(s): R31.0 - Gross hematuria Narrative A/P Narrative: POD # 1 TURP -bleeding has resolved -ok to d/c per urology -follow up post op one week Time Spent With Patient Time: Total time spent is greater than 50% in coordination of care (as documented) at patient's floor/unit and/or counseling patient: QUALITY Stroke Symptom Onset Unknown: No VTE Deep Vein Thrombosis/Pulmonary Embolism Present on Admission: No
[2020-07-14] MEDS: DIGOXIN 125 MCG TABLET PO SCH (13:45)
--- NOTE | 2020-07-14 15:16 | Discharge Summary ---
Discharge Provider Provider Patient information: Note initiated : 07/14/20 at 3:07 pm Service Date, if different from initiated Date: [] Patient: Suman Charles 89 y/o M admitted on 07/08/20 for Urinary Retention. Chief Complaint: [] Date of admission: 07/08/20 21:20 Discharge date: 07/14/20 Primary care physician: Juan Manuel Rivas Consults: 07/07/20 02:54 Consult to Physician [CONS] Stat Comment: Consulting Provider: Omari Mueller Reason For Exam: Physician to Consult 07/07/20 03:33 Consult to Physician [CONS] Stat Comment: Consulting Provider: Maria Eugenia Altamirano Reason For Exam: Physician to Consult 07/07/20 12:44 Consult to Physician [CONS] Routine Comment: Consulting Provider: Omari Mueller Reason For Exam: Physician to Consult Discharge Meds Discharge Medications Home Medications digoxin 250 mcg PO DAILY 06/06/15 [History Confirmed 07/07/20 Last Taken 11/16/18] calcium carbonate-vitamin D3 2 tab PO BID 07/09/17 [History Confirmed 07/07/20 Last Taken 11/16/18] cholecalciferol (vitamin D3) 125 mcg (5,000 unit) capsule 5,000 unit PO QDAY 12/03/17 [History Confirmed 07/07/20 Last Taken 11/16/18] calcium carbonate-vitamin D3 1,000 mg PO BID tab 11/19/18 [Rx Confirmed 07/07/20 Last Taken Unknown] phenazopyridine 200 mg tablet 200 mg PO TID #30 tab 11/21/18 [Rx Confirmed 07/07/20 Last Taken Unknown] finasteride 5 mg tablet 5 mg PO QDAY #20 tab 09/09/19 [Rx Confirmed 07/07/20 Last Taken Unknown] nitroglycerin 0.4 mg SUBLINGUAL PRN PRN 07/07/20 [History Confirmed 07/07/20 Last Taken Unknown] Spiriva Respimat 2 puff INHALATION DAILY 07/11/20 [History Confirmed 07/11/20 Last Taken Unknown] albuterol sulfate 2 puff INHALATION Q4H PRN 07/11/20 [History Confirmed 07/11/20 Last Taken Unknown] budesonide-formoterol [Symbicort] 2 puff INHALATION BID 07/11/20 [History Confirmed 07/11/20 Last Taken Unknown] cephalexin [Keflex] 500 mg PO TID #20 cap 07/14/20 [Rx Last Taken Unknown] COURSE Hospital Course Hospital course: *Hematuria, gross: *Hemorrhage of prostate: *Acute urinary retention: *Hx of bladder cancer: *BPH: Has been managed by urology Dr. Mueller, who cleared to discharged pt to home today. bipolar transurethral resection prostate was performed by urologist Dr. Mueller on July 13, 2020. *Anemia from acute blood loss: -H&H stable *Atrial fibrillation: Rate is controlled Patient is not on anticoagulation. Patient understood the risks and benefits of anticoagulation. I would not like to start anticoagulation now. Follow with PCP and urology. *CAD, s/p pacemaker placement: Continue home medication *[place] on cpap: Follow with the PCP Mr. Charles is a 89 year old M with a history of hematuria, atrial fibrillation, CAD, bladder cancer, and BPH who was sent to the ER by urologist Dr. Mueller after cystoscopy. Patient has been having hematuria for about 1 year which has been worsening recently. he also had acute urinary retention yesterday. He underwent both PVP and then urgent TURP for bleeding by urologist Dr. Cruz. Yesterday patient went to see Dr. Mueller who found him to have urinary retention and pass larger clots when urinating. Cystoscopy was performed yest erday by Dr. Mueller, showing a very enlarged prostate with a large median lobe. I was called to see and admit this patient after the cystoscopy because of gross hematuria and need of CBI. 07/08 Pt feels fine. Does not have complaits. Denies fever or n/v. Vital signs are stable and acceptable Hb 12.7 Creatinine 1.0 07/09 No new complaints overnight events. CBI in place. Red Aravind-Aid colored fluid in [place] bag. 07/10 States poor sleep because his is in the hospital over [place]. Otherwise no new complaints overnight events. 07/11 Patient complained of crampy abdominal pain. Bladder distention discomfort. Otherwise no other complaints. 07/12 Patient has some abdominal discomfort but no change. No new complaints. Awaiting surgical intervention. 07/13 Patient in PACU, no intraoperative complications. Patient still quite groggy. 07/14 Patient does not have any complaints today. Vital signs are stable. PT OT okay to go home with home health. Dr. Mueller cleared to discharge patient to home today. Patient is to see PCP in [address] Mueller in one week. He needs to repeat CBC in 3 days. Call PCP for medical issues. Discharge diagnosis: Hematuria Time Spent with Patient Time attestation: Total time spent providing and/or coordinating discharge services: EXAM Constitutional Vitals: Temp Pulse Resp BP Pulse Ox 98.8 F 75 20 116/67 91 07/14/20 12:00 07/14/20 12:00 07/14/20 12:00 07/14/20 12:00 07/14/20 12:00 Additional findings Additional findings: General: Alert, Awake, No acute Distress Eyes/N/T: EOMI, Head/Neck: neck supple, CV: RRR, 2/6 SM Pulm: Clear b/l, no wheezing/rhonchi/rales Abd: soft, +BS x4 Ext: no clubbing/cyanosis/edema Neuro: Alert, no focal deficits, moves all extremities, Skin: warm/dry Discharge Data Data Completed and Pending Labs on day of discharge: Labs from last 24 hours 07/14/20 07/14/20 05:47 05:47 WBC 7.8 RBC 4.19 L Hgb 12.3 L Hct 38.6 L MCV 92.1 MCH 29.4 MCHC 31.9 RDW 14.1 Plt Count 174 MPV 10.6 H Neut % (Auto) 65.7 Lymph % (Auto) 18.7 [place] % (Auto) 10.1 Eos % (Auto) 4.9 Baso % (Auto) 0.6 Lymph # (Auto) 1.45 L [place] # (Auto) 0.78 Eos # (Auto) 0.38 Baso # (Auto) 0.05 Sodium 136 Potassium 4.6 Chloride 101 Carbon Dioxide 27 Anion Gap 8.0 BUN 17 Creatinine 1.2 GFR Calculation 54 Glucose 102 Calcium 9.4 Total Bilirubin 0.9 AST 26 ALT 20 Alkaline Phosphatase 91 Total Protein 6.6 Albumin 3.4 Globulin 3.2 Albumin/Globulin Ratio 1.1 Abs Neutrophil Control 5.10 Discharge Plan Patient/Caregiver Discharge Instructions Activity: increase activity as tolerated and as instructed Diet: Regular Diet Instructions: Cephalexin (By mouth), Hematuria (GEN), Transurethral Prostatectomy (DC) Activity Restrictions/Additional Instructions: No strenuous activity. Regular diet as tolerated. Mild blood in the urine is to be expected as you heal. Aim for a "pink lemonade" color. Push fluids when you see such. Hold your Aspirin and Vit E until urine free of blood for 24 hours, then you may resume. You will have [employer] [place] [employer] for your services ([phone]). May shower. No soaking in tub/pool/jacuzzi. Your prescriptions have been sent to [facility]. Call your physician for sustained fever greater than 100.5, increase in bleeding, pain not controlled by rest, or any questions/concerns. ([phone]). This discharge packet is provided to you to help keep you informed about your care. We want to ensure you get everything you need when you go home. You will also be receiving a call from us in a few days to follow up with you and see how you are doing since your discharge. This gives us a chance to listen to any concerns you maybe experiencing since you were discharged or any additional needs you may have, as well as providing us feedback on your care experience. We strive to always provide excellent care and thank you for your feedback and for choosing [facility]. Prescriptions: New cephalexin [Keflex] 500 mg capsule 500 mg PO TID Qty: 20 RF: 0 Continued digoxin 250 MCG tablet 250 mcg PO DAILY RF: 0 calcium carbonate-vitamin D3 1 EACH tablet 2 tab PO BID RF: 0 calcium carbonate-vitamin D3 500 MG tablet 1,000 mg PO BID RF: 0 nitroglycerin 0.4 mg tablet, sublingual 0.4 mg sublingual PRN PRN (Reason: Chest Pain) RF: 0 budesonide-formoterol [Symbicort] 160-4.5 mcg/actuation HFA aerosol inhaler 2 puff INHALATION BID RF: 0 Spiriva Respimat 2.5 mcg/actuation mist 2 puff INHALATION DAILY RF: 0 albuterol sulfate 90 mcg/actuation Hfa Aerosol Inhaler 2 puff INHALATION Q4H PRN (Reason: shortness of breath) RF: 0 cholecalciferol (vitamin D3) 5,000 unit capsule 5,000 unit PO QDAY RF: 0 phenazopyridine [Pyridium] 200 mg tablet 200 mg PO TID Qty: 30 RF: 3 finasteride [Proscar] 5 mg tablet 5 mg PO QDAY Qty: 20 RF: 0 Discontinued vitamin E (dl, acetate) 400 UNIT capsule 800 unit PO HS RF: 0 aspirin 325 mg tablet,delayed release (DR/EC) 325 mg PO DAILY RF: 0 Other Ambulatory Orders: Complete Blood Count (Routine) Timeframe: 3 Days Facility: [facility] - Location: Laboratory Ordered By: Maria Eugenia Altamirano Follow Up Plan Follow up with: Omari Mueller MD [Physician] - 07/22/20 2:30 pm Unknown [Outside] (Follow with the PCP in 3 days.) Patient Disposition: Home Health Service Discharge Orders: Discharge Order (Routine); Ordered 07/14/20 Ordered By: Omari Mueller QUALITY VTE Deep Vein Thrombosis/Pulmonary Embolism Present on Admission: No
--- NOTE | 2020-07-20 17:36 | Surgical Pathology Report ---
Histology Microscopic Diagnosis Specimen A- PROSTATE, TRANSURETHRAL RESECTION: -- BENIGN PROSTATIC HYPERTROPHY. -- NO CARCINOMA IDENTIFIED. (RLF:sln) Clinical History Hematuria. Microscopic Description Multiplex immunohistochemistry is performed (blocks A4, A6). Cells of interest: Atypical small acinar proliferations. PIN4 (P504S, 34BE12, p63): Patchy partial loss of basal epithelial cells; no P504S staining. Interpretation: Benign; no carcinoma identified. Gross Description Received in formalin labeled prostate tissue, are multiple irregular pink-cartwright tissue fragments in aggregate weighing 24 grams and measuring 8.5 x 6.4 x 1.2 cm. Textile [employer] sections are submitted in six cassettes. (SCB:sln) IHC Disclaimer Some of the tests reported may not have been cleared or approved by the [place]. Food Drug Administration (FDA). However, the FDA has determined that such clearance or approval is not necessary. Pursuant to the requirements of CLIA, this laboratory has established and verified the accuracy and precision of all tests, and additional information about these tests is available upon request. All technical controls are adequate. Electronically Signed Ana Macario MD, FCAP Electronically Signed 07/15/2020 10:34 AM
== END 2020-07-14 15:20 | disposition home health service (06) | DRG 663 ==
LOC: ED 00:34 → MEDSUR 00:34
PROVIDERS: ADMIT Internal Medicine; ATTEND Internal Medicine